=== PATIENT | male | born 1940 | race Caucasian/White ===

== ENCOUNTER 2018-10-01 05:48 | Emergency (ER) | payer OTHER ==
[2018-10-01 06:22] LABS: Absolute Lymphocytes (CBC) 2.1 K/uL (0.7-4.9); Basophils % 0.4 % (0-1.3); Lymphocytes % 30.3 % (15.3-44.8); MPV 8.8 fL (7.6-11.3)
[2018-10-01 06:25] LABS: Protime INR 1.02
[2018-10-01] MEDS ORDERED: NA CHLORIDE 0.9% 1,000 ML ONE (06:33)
[2018-10-01 06:41] LABS: ALT/SGPT 21 U/L (12-78); AST/SGOT 15 U/L (15-37); Albumin 4.4 g/dL (3.4-5.0); Alkaline Phosphatase 49 U/L (45-117); BUN Blood Urea Nitrogen 18 mg/dL (7-18); Bicarbonate 29 mmol/L (21-32); Bilirubin Direct 0.2 mg/dL (0-0.2); Bilirubin Total 0.8 mg/dL (0.2-1.0); Glucose Level 107 mg/dL (74-106); Lipase 114 U/L (73-393); Magnesium 2.1 mg/dL (1.8-2.4); NT PRO-BNP 85 pg/mL (<450); Potassium 4.1 mmol/L (3.5-5.1); Protein, Total 7.8 g/dL (6.4-8.2); Sodium Level 143 mmol/L (136-145); Troponin (Emerg Dept Use Only) < 0.02 ng/mL (0.0-0.045)
[2018-10-01] MEDS ORDERED: AMLODIPINE 5 MG TAB ONE (07:15)
--- NOTE | 2018-10-01 07:45 | RAD REPORT ---
EXAM DESCRIPTION: CT - Head Brain Wo Cont - 10/01/2018 7:04 am CLINICAL HISTORY: Dizziness, posterior headache COMPARISON: None. TECHNIQUE: Axial 5 mm thick images of the head were obtained without IV contrast. All CT scans are performed using dose optimization technique as appropriate and may include automated exposure control or mA/KV adjustment according to patient size. FINDINGS: No intracranial hemorrhage, mass, edema or shift of mid-line structures. No acute infarcti on changes seen. No abnormal extra-axial fluid collections. Ventricles are normal. Atrophy changes ar e minimal. No measurable chronic ischemic change. Arterial tree calcifications are present. Basilar a rtery is quite tortuous. Calcifications of the vertebral arteries are very dense and may well be sten otic. Partially visualized paranasal sinuses are clear. Right mastoid air cells are clear. Left mastoid air cells are underpneumatized. The existing mastoid air cells are fully opacified. Middle ear is clear. No acute bony findings. IMPRESSION: No acute intracranial finding. No significant atrophy or chronic ischemic change. Arterial tree calcifications are present including dense calcifications of the distal vertebral arter ies'. Opacification of the left side mastoid air cells. Mastoiditis is possible and correlation is needed w ith clinical findings and presentation.
[2018-10-01] MEDS ORDERED: ASPIRIN 81 MG CHEWABLE TABLET ONE (07:59)
[2018-10-01] MEDS ORDERED: MECLIZINE HCL 12.5 MG TAB ONE (08:11)
[2018-10-01 08:23] LABS: Urine Blood NEGATIVE (NEG); Urine Glucose NEGATIVE (NEG); Urine Protein NEGATIVE (NEG)
--- NOTE | 2018-10-01 08:36 | RAD REPORT ---
EXAM DESCRIPTION: RAD - Chest Single View - 10/01/2018 6:20 am CLINICAL HISTORY: Dizziness, cough, hypertension COMPARISON: None. TECHNIQUE: AP portable chest image was obtained 0615 hours . FINDINGS: Interstitial markings are mildly prominent believed to be baseline. No focal mass or conso lidation. Heart size is normal. Pulmonary vasculature within normal limits. Heart size is normal. Tra tay is midline. No measurable pleural effusion and no pneumothorax. No acute bony abnormality seen. Aortic tortuosity is present without aneurysmal dilatation suspected. IMPRESSION: No acute cardiopulmonary process. Patient has prominent interstitial markings believed be baseline.
--- NOTE | 2018-10-01 08:47 | EKG ---
Test Date: 2018-10-01 Test Time: 06:13:06 [employer] Consultant: MITCHELL MEASUREMENT RESULTS: Intervals: Rate: 74 TN: 156 QRSD: 90 QT: 404 QTc: 448 [place]: P: 65 TN: 156 QRS: 50 T: 59 INTERPRETIVE STATEMENTS: Normal sinus rhythm Normal ECG No previous ECG available for comparison Electronically Signed On 10-01-18 08:46:26 CDT by Blayne Pulido
--- NOTE | 2018-10-01 11:40 | RAD REPORT ---
EXAM DESCRIPTION: - CP - 10/01/2018 10:17 am CLINICAL HISTORY: Dizziness, syncope COMPARISON: None. TECHNIQUE: Real-time sonographic evaluation of both carotid systems was performed. Kenny scale and Do ppler interrogation were performed with waveform tracing bilaterally. FINDINGS: Normal high resistance waveforms are noted in both external carotid arteries. The common c arotid arteries and internal carotid arteries show normal low resistance waveforms. Short segment focal calcified plaquing changes are present in the distal aspect of the right common c arotid artery. Velocity values proximal and distal to this focal plaquing are not substantially diffe rent. More distally in the right side vasculature within the bulb and ICA there is no significant add itional plaquing change. On the left side there is no significant degree of plaquing or luminal narro wing. No dissection. Peak systolic and end diastolic velocity values and the ICA/CCA ratios are in th e non-hemodynamically significant range. Antegrade flow seen in both vertebral arteries. Velocity values and ratios were recorded and are retained in the patient's imaging records. IMPRESSION: No significant atherosclerotic changes noted. Focal calcified plaquing in the distal right common carotid artery is present but does not cause abno rmal velocity values. Velocity values and ratios indicate no hemodynamically significant stenoses.
--- NOTE | 2018-10-01 12:12 | EDPHYS ---
Physician Documentation [facility] Name: Capo Del Real Age: 77 yrs Sex: Male : 1940 Arrival Date: 10/01/2018 Time: 05:49 Bed 17 Private MD: ED Physician Soto Prieto HPI: 10/01 06:59 This 77 yrs old Male presents to ER via Wheelchair with complaints of stephen Dizziness, High Blood Pressure. 06:59 The patient presents with dizziness. Onset: The symptoms/episode began/occurred just stephen prior to arrival, this morning, today. Context: occurred at home, occurred while the patient was at rest. Modifying factors: The symptoms are alleviated by nothing, the symptoms are aggravated by nothing. Associated signs and symptoms: The patient has no apparent associated signs or symptoms. Severity of symptoms: At their worst the symptoms were mild in the emergency department the symptoms are unchanged. Patient's baseline: Neuro: alert and fully oriented. The patient has not experienced similar symptoms in the past. Historical: - Allergies: 06:00 Cipro; cc3 - PMHx: 06:00 None; cc3 - PSHx: 06:00 back surgery; cc3 - Immunization history:: Adult Immunizations up to date. - Social history:: Smoking status: Patient/guardian denies using tobacco, never smoked. - Ebola Screening: : No symptoms or risks identified at this time. - Family history:: not pertinent. ROS: 06:59 Constitutional: Negative for fever, chills, and weight loss, Eyes: Negative for injury, stephen pain, redness, and discharge, ENT: Negative for injury, pain, and discharge, Neck: Negative for injury, pain, and swelling, Cardiovascular: Negative for chest pain, palpitations, and edema, Respiratory: Negative for shortness of breath, cough, wheezing, and pleuritic chest pain, Abdomen/GI: Negative for abdominal pain, nausea, vomiting, diarrhea, and constipation, Back: Negative for injury and pain, : Negative for injury, bleeding, discharge, and swelling, MS/Extremity: Negative for injury and deformity, Skin: Negative for injury, rash, and discoloration, Psych: Negative for depression, anxiety, suicide ideation, homicidal ideation, and hallucinations, Allergy/Immunology: Negative for hives, rash, and allergies, Endocrine: Negative for neck swelling, polydipsia, polyuria, polyphagia, and marked weight changes, Hematologic/Lymphatic: Negative for swollen nodes, abnormal bleeding, and unusual bruising. 06:59 Neuro: Positive for dizziness. Exam: 06:59 Constitutional: This is a well developed, well nourished patient who is awake, alert, stephen and in no acute distress. Head/Face: Normocephalic, atraumatic. Eyes: Pupils equal round and reactive to light, extra-ocular motions intact. Lids and lashes normal. Conjunctiva and sclera are non-icteric and not injected. Cornea within normal limits. Periorbital areas with no swelling, redness, or edema. ENT: Nares patent. No nasal discharge, no septal abnormalities noted. Tympanic membranes are normal and external auditory canals are clear. Oropharynx with no redness, swelling, or masses, exudates, or evidence of obstruction, uvula midline. Mucous membranes moist. Neck: Trachea midline, no thyromegaly or masses palpated, and no cervical lymphadenopathy. Supple, full range of motion without nuchal rigidity, or vertebral point tenderness. No Meningismus. Chest/axilla: Normal chest wall appearance and motion. Nontender with no deformity. No lesions are appreciated. Cardiovascular: Regular rate and rhythm with a normal S1 and S2. No gallops, murmurs, or rubs. Normal PMI, no JVD. No pulse deficits. Respiratory: Lungs have equal breath sounds bilaterally, clear to auscultation and percussion. No rales, rhonchi or wheezes noted. No increased work of breathing, no retractions or nasal flaring. Abdomen/GI: Soft, non-tender, with normal bowel sounds. No distension or tympany. No guarding or rebound. No evidence of tenderness throughout. Back: No spinal tenderness. No costovertebral tenderness. Full range of motion. Skin: Warm, dry with normal turgor. Normal color with no rashes, no lesions, and no evidence of cellulitis. MS/ Extremity: Pulses equal, no cyanosis. Neurovascular intact. Full, normal range of motion. Neuro: Awake and alert, GCS 15, oriented to person, place, time, and situation. Cranial nerves II-XII grossly intact. Motor strength 5/5 in all extremities. Sensory grossly intact. Cerebellar exam normal. Normal gait. Psych: Awake, alert, with orientation to person, place and time. Behavior, mood, and affect are within normal limits. 06:59 Cardiovascular: Rate: normal, Rhythm: regular, Pulses: no pulse deficits are appreciated, Heart sounds: normal, normal S1and S2, no S3 or S4, no murmur, no rub, no gallop, Edema: is not appreciated, JVD: is not appreciated. Vital Signs: 06:00 BP 187 / 96; Pulse 85; Resp 18 S; Temp 97.7(O); Pulse Ox 98% on R/A; Weight 83.91 kg cc3 (R); Height 5 ft. 9 in. (175.26 cm) (R); 06:47 BP 162 / 88; Pulse 70; Resp 17 S; Pulse Ox 98% on R/A; cc3 07:07 BP 154 / 92; Pulse 70; Resp 16 S; Pulse Ox 99% on R/A; aa5 08:00 BP 157 / 75; Pulse 72; Resp 16; Temp 98.0(TE); Pulse Ox 98% on R/A; Pain 0/10; aa5 09:00 BP 145 / 75; Pulse 62; Resp 16 S; Pulse Ox 98% on R/A; Pain 0/10; aa5 10:35 BP 144 / 71; Pulse 59; Resp 18; Pulse Ox 98% on R/A; aj1 11:47 BP 146 / 74; Pulse 56; Resp 15; Pulse Ox 99% on R/A; aj1 12:43 BP 136 / 68; Pulse 55; Resp 18; Pulse Ox 99% on R/A; aj1 06:00 Body Mass Index 27.32 (83.91 kg, 175.26 cm) 3 MDM: 06:01 Patient medically screened. [facility] 07:09 Data reviewed: vital signs, nurses notes, lab test result(s), EKG, radiologic studies, [facility] CT scan, doppler, plain films. 10:29 Data interpreted: Pulse oximetry: on room air is 98 %. Interpretation: normal. jr8 Counseling: I had a detailed discussion with the patient and/or guardian regarding: the historical points, exam findings, and any diagnostic results supporting the discharge/admit diagnosis, lab results, radiology results, the need for outpatient follow up, a family practitioner, to return to the emergency department if symptoms worsen or persist or if there are any questions or concerns that arise at home. 10/01 05:58 Order name: Basic Metabolic Panel [facility] 10/01 05:58 Order name: CBC with Diff; Complete Time: 06:46 stephen 10/01 05:58 Order name: LFT's; Complete Time: 06:46 stephen 10/01 05:58 Order name: Magnesium; Complete Time: 06:46 stephen 10/01 05:58 Order name: NT PRO-BNP; Complete Time: 06:46 stephen 10/01 05:58 Order name: PT-INR; Complete Time: 06:46 stephen 10/01 05:58 Order name: Troponin (emerg Dept Use Only); Complete Time: 06:46 stephen 10/01 05:58 Order name: XRAY Chest (1 view); Complete Time: 10:25 stephen 10/01 05:58 Order name: Lipase; Complete Time: 06:46 stephen 10/01 05:58 Order name: Urine Culture [facility] 10/01 05:58 Order name: CT Head Brain wo Cont; Complete Time: 07:55 stephen 10/01 05:59 Order name: Basic Metabolic Panel; Complete Time: 06:46 EDMS 10/01 07:10 Order name: Echo w/ Doppler [facility] 10/01 08:14 Order name: Urine Dipstick--Ancillary (enter results); Complete Time: 10:25 eb 10/01 05:58 Order name: EKG; Complete Time: 06:00 stephen 10/01 05:58 Order name: Cardiac monitoring; Complete Time: 06:05 stephen 10/01 05:58 Order name: EKG - Nurse/Tech; Complete Time: 06:25 stephen 10/01 05:58 Order name: IV Saline Lock; Complete Time: 06:24 stephen 10/01 05:58 Order name: Labs collected and sent; Complete Time: 06:24 stephen 10/01 05:58 Order name: O2 Per Protocol; Complete Time: 06:06 stephen 10/01 05:58 Order name: O2 Sat Monitoring; Complete Time: 06:06 stephen 10/01 05:58 Order name: Urine Dipstick-Ancillary (obtain specimen); Complete Time: 08:38 stephen 10/01 07:54 Order name: US Carotid Artery Bilateral; Complete Time: 11:45 stephen Administered Medications: 06:26 Drug: NS 0.9% 1000 ml Route: IV; Rate: 125 ml/hr; Site: right antecubital; cc3 12:44 Follow up: IV Status: Completed infusion; IV Intake: 500ml aj1 06:50 Drug: Norvasc 10 mg Route: PO; cc3 07:30 Follow up: Response: No adverse reaction aa5 07:22 Not Given (Duplicate Order): benazepril 20 mg PO once stephen 07:40 Drug: Aspirin 162 mg Route: PO; aa5 09:00 Follow up: Response: No adverse reaction aa5 07:54 Drug: Meclizine 25 mg Route: PO; aa5 09:00 Follow up: Response: No adverse reaction aa5 Disposition: 10/01/18 12:11 Discharged to Home. Impression: Essential (primary) hypertension, Dizziness and giddiness. - Condition is Stable. - Discharge Instructions: Dizziness, Hypertension, Hypertension, [id number], Aspirin and Your Heart, Dizziness, [id number], Managing Your Hypertension. - Prescriptions for Lotrel 5- 10 mg Oral capsule - take 1 capsule by ORAL route once daily; 20 capsule. Meclizine 25 mg Oral Tablet - take 1 tablet by ORAL route every 8 hours As needed; 30 tablet. - Medication Reconciliation Form, Thank You Letter, Antibiotic Education, Prescription Opioid Use, SBAR form form. - Follow up: Private Physician; When: 2 - 3 days; Reason: Recheck today's complaints, Continuance of care, Re-evaluation by your physician. Follow up: A Meraz; When: 2 - 3 days; Reason: Recheck today's complaints, Continuance of care, Re-evaluation by your physician. - Problem is new. - Symptoms have improved. Signatures: Dispatcher [employer] EDAntonia Marks RN RN aj1 Soto Prieto MD MD cha Calderon, Audri RN RN aa5 David Sampson PA PA jr8 Diane Barrera cc3 Corrections: (The following items were deleted from the chart) 12:45 12:11 10/01/2018 12:11 Discharged to Home. Impression: Essential (primary) aj1 hypertension; Dizziness and giddiness. Condition is Stable. Discharge Instructions: Dizziness, Hypertension, Hypertension, [id number], Aspirin and Your Heart, Dizziness, [id number], Managing Your Hypertension. Prescriptions for Lotrel 5-10 mg Oral capsule - take 1 capsule by ORAL route once daily; 20 capsule, Meclizine 25 mg Oral Tablet - take 1 tablet by ORAL route every 8 hours As needed; 30 tablet. and Forms are SBAR form, Medication Reconciliation Form, Thank You Letter, Antibiotic Education, Prescription Opioid Use. Follow up: Private Physician; When: 2 - 3 days; Reason: Recheck today's complaints, Continuance of care, Re-evaluation by your physician. Follow up: A Meraz; When: 2 - 3 days; Reason: Recheck today's complaints, Continuance of care, Re-evaluation by your physician. Problem is new. Symptoms have improved. jr8
--- NOTE | 2018-10-01 12:12 | ER ---
Nurse's Notes [facility] Name: Capo Del Real Age: 77 yrs Sex: Male : 1940 Arrival Date: 10/01/2018 Time: 05:49 Bed 17 Private MD: Diagnosis: Essential (primary) hypertension;Dizziness and giddiness Presentation: 10/01 06:00 Presenting complaint: Patient states: "At 0400H this morning while I was trying to fall cc3 asleep, I feel like everything is spinning and I'm having a headache with NRS of 2/10. We checked my blood pressure at home and the reading is 156/102 mmHg" Patient said he's had chest pain a couple of days back but now he don't. Transition of care: patient was not received from another setting of care. Onset of symptoms was October 01, 2018. Risk Assessment: Do you want to hurt yourself or someone else? Patient reports no desire to harm self or others. Initial Sepsis Screen: Does the patient meet any 2 criteria? No. Patient's initial sepsis screen is negative. Does the patient have a suspected source of infection? No. Patient's initial sepsis screen is negative. Care prior to arrival: None. 06:00 Method Of Arrival: Wheelchair cc3 06:00 Acuity: WAYNE 3 cc3 Triage Assessment: 06:00 General: Appears in no apparent distress. comfortable, Behavior is calm, cooperative, cc3 appropriate for age. Pain: Complains of pain in head Pain currently is 2 out of 10 on a pain scale. EENT: No signs and/or symptoms were reported regarding the EENT system. Neuro: Level of Consciousness is awake, alert, obeys commands, Oriented to person, place, time, situation, Appropriate for age. Cardiovascular: Denies chest pain, Capillary refill < 3 seconds Patient's skin is warm and dry. Respiratory: Airway is patent Respiratory effort is even, unlabored, Respiratory pattern is regular, symmetrical. GI: Abdomen is round non-distended. : No signs and/or symptoms were reported regarding the genitourinary system. Derm: Skin is intact, is healthy with good turgor, Skin is pink, warm \\T\\ dry. normal. Musculoskeletal: Circulation, motion, and sensation intact. Range of motion: intact in all extremities. Historical: - Allergies: 06:00 Cipro; cc3 - PMHx: 06:00 None; cc3 - PSHx: 06:00 back surgery; cc3 - Immunization history:: Adult Immunizations up to date. - Social history:: Smoking status: Patient/guardian denies using tobacco, never smoked. - Ebola Screening: : No symptoms or risks identified at this time. - Family history:: not pertinent. Screenin:00 Abuse screen: Denies threats or abuse. Denies injuries from another. Nutritional cc3 screening: No deficits noted. Tuberculosis screening: No symptoms or risk factors identified. Fall Risk Ambulatory Aid- None/Bed Rest/Nurse Assist (0 pts). Gait- Normal/Bed Rest/Wheelchair (0 pts) Mental Status- Oriented to own ability (0 pts). Assessment: 06:00 General: see triage assessment. cc3 07:35 General: Appears uncomfortable, Behavior is calm, cooperative. Pain: Denies pain. aa5 Neuro: Level of Consciousness is awake, alert, obeys commands, Oriented to person, place, time, situation, Core Oven Tender are equal bilaterally Moves all extremities. Speech is normal, Facial symmetry appears normal, Pupils are PERRLA, Reports dizziness, worse with movement. Cardiovascular: Heart tones S1 S2 present Rhythm is regular. Respiratory: Airway is patent Respiratory effort is even, unlabored, Respiratory pattern is regular, symmetrical, Breath sounds are clear bilaterally. GI: Abdomen is round non-distended, Bowel sounds present X 4 quads. Abd is soft and non tender X 4 quads. Patient currently denies nausea, vomiting. : No signs and/or symptoms were reported regarding the genitourinary system. EENT: No signs and/or symptoms were reported regarding the EENT system. Derm: Skin is pink, warm \\T\\ dry. Musculoskeletal: Range of motion: intact in all extremities. 09:00 Reassessment: Patient is alert, oriented x 3, equal unlabored respirations, skin aa5 warm/dry/pink. Patient denies pain at this time. Pt reports dizziness has improved. Awaiting US. US contacted and they stated they will come to transport pt to US in a few minutes. . 09:18 Reassessment: Pt to US via stretcher . aa5 10:33 Reassessment: Patient and/or family updated on plan of care and expected duration. Pain aj1 level reassessed. General: Appears in no apparent distress. comfortable, Behavior is calm, cooperative, appropriate for age. Pain: Denies pain. Neuro: Level of Consciousness is awake, alert, obeys commands, Oriented to person, place, time, situation, Moves all extremities. Full function Speech is normal, Facial symmetry appears normal, Reports dizziness. Cardiovascular: Patient's skin is warm and dry. Respiratory: Airway is patent Respiratory effort is even, unlabored, Respiratory pattern is regular, symmetrical. Derm: Skin is pink, warm \\T\\ dry. normal. Musculoskeletal: Range of motion: intact in all extremities. 11:04 Reassessment: Echo at bedside. aj1 11:46 Reassessment: Patient appears in no apparent distress at this time. No changes from aj1 previously documented assessment. Patient and/or family updated on plan of care and expected duration. Pain level reassessed. Patient is alert, oriented x 3, equal unlabored respirations, skin warm/dry/pink. 12:43 Reassessment: Patient appears in no apparent distress at this time. No changes from aj1 previously documented assessment. Patient and/or family updated on plan of care and expected duration. Pain level reassessed. Patient is alert, oriented x 3, equal unlabored respirations, skin warm/dry/pink. Vital Signs: 06:00 BP 187 / 96; Pulse 85; Resp 18 S; Temp 97.7(O); Pulse Ox 98% on R/A; Weight 83.91 kg cc3 (R); Height 5 ft. 9 in. (175.26 cm) (R); 06:47 BP 162 / 88; Pulse 70; Resp 17 S; Pulse Ox 98% on R/A; cc3 07:07 BP 154 / 92; Pulse 70; Resp 16 S; Pulse Ox 99% on R/A; aa5 08:00 BP 157 / 75; Pulse 72; Resp 16; Temp 98.0(TE); Pulse Ox 98% on R/A; Pain 0/10; aa5 09:00 BP 145 / 75; Pulse 62; Resp 16 S; Pulse Ox 98% on R/A; Pain 0/10; aa5 10:35 BP 144 / 71; Pulse 59; Resp 18; Pulse Ox 98% on R/A; aj1 11:47 BP 146 / 74; Pulse 56; Resp 15; Pulse Ox 99% on R/A; aj1 12:43 BP 136 / 68; Pulse 55; Resp 18; Pulse Ox 99% on R/A; aj1 06:00 Body Mass Index 27.32 (83.91 kg, 175.26 cm) cc3 ED Course: 05:49 Patient arrived in ED. ds1 05:56 Diane Barrera is Primary Nurse. cc3 05:57 Soto Prieto MD is Attending Physician. stephen 06:00 Patient has correct armband on for positive identification. Placed in gown. Bed in low cc3 position. Call light in reach. Side rails up X 1. filler shaker on. Pulse ox on. NIBP on. 06:00 Arm band placed on right wrist. cc3 06:05 Initial lab(s) drawn, by me, sent to lab. Inserted saline lock: 20 gauge in right jb4 antecubital area, using aseptic technique. Blood collected. 06:20 XRAY Chest (1 view) In Process Unspecified. EDMS 06:32 Triage completed. cc3 06:59 CT completed. Patient tolerated procedure well. Patient moved to CT via stretcher. Patient moved back from CT. 07:00 Report received from ROSANNE Contreras. aa5 07:05 CT Head Brain wo Cont In Process Unspecified. EDMS 07:40 Ny Davies, RN is Primary Nurse. aa5 09:56 Report given to Antonia Mayen RN. aa5 10:11 Carotid Artery Bilateral In Process Unspecified. EDMS 10:25 David Sampson PA is PHCP. jr8 12:11 Jeffrey Meraz MD is Referral Physician. jr8 12:43 No provider procedures requiring assistance completed. IV discontinued, intact, aj1 bleeding controlled, No redness/swelling at site. Pressure dressing applied. Administered Medications: 06:26 Drug: NS 0.9% 1000 ml Route: IV; Rate: 125 ml/hr; Site: right antecubital; cc3 12:44 Follow up: IV Status: Completed infusion; IV Intake: 500ml aj1 06:50 Drug: Norvasc 10 mg Route: PO; cc3 07:30 Follow up: Response: No adverse reaction aa5 07:22 Not Given (Duplicate Order): benazepril 20 mg PO once stephen 07:40 Drug: Aspirin 162 mg Route: PO; aa5 09:00 Follow up: Response: No adverse reaction aa5 07:54 Drug: Meclizine 25 mg Route: PO; aa5 09:00 Follow up: Response: No adverse reaction aa5 Intake: 12:44 IV: 500ml; Total: 500ml. aj1 Outcome: 12:11 Discharge ordered by . jr8 12:44 Discharged to home ambulatory, with family. aj1 12:44 Condition: good 12:44 Discharge instructions given to patient, Instructed on discharge instructions, follow up and referral plans. medication usage, Demonstrated understanding of instructions, follow-up care, medications, Prescriptions given X 2. 12:45 Patient left the ED. aj1 Signatures: Dispatcher [employer] EDAntonia Marks RN RN aj1 Soto Prieto MD MD cha Hagler, Mari Nair ds1 Ny Davies RN RN aa5 David Sampson PA PA jr8 Pablo Moran RN RN jb4 Diane Barrera cc3 Corrections: (The following items were deleted from the chart) 09:57 09:56 Report given to Antonia Mayen RN aj1 aa5 58 07:30 Response: No adverse reaction [facility] aa5 09:00 Response: No adverse reaction [facility] aa5 58 09:00 Response: No adverse reaction [facility] aa5
--- NOTE | 2018-10-01 13:41 | ECHO ---
HEIGHT: 5 ft 9 in WEIGHT: 185 lb 0 oz DATE OF STUDY: 10/01/[address]: Soto Prieto MD 2-DIMENSIONAL: YES M.MODE: YES DOPPLER: YES COLOR FLOW: YES TDS: NO PORTABLE: NO DEFINITY: NO BUBBLE STUDY: NO DIAGNOSIS: DIZZY CARDIAC HISTORY: CATHERIZATION: NO SURGERY: NO PROSTHETIC VALVE: NO PACEMAKER: NO MEASUREMENTS (cm) DIASTOLIC (NORMALS) SYSTOLIC (NORMALS) IVSd 1.0 (0.6-1.2) LA Diam 4.2 (1.9-4.0) LVEF 60% LVIDd 4.5 (3.5-5.7) LVIDs 3.1 (2.0-3.5) %FS 32% LVPWd 1.1 (0.6-1.2) Ao Diam 3.2 (2.0-3.7) 2 DIMENSIONAL ASSESSMENT: RIGHT ATRIUM: NORMAL LEFT ATRIUM: NORMAL RIGHT VENTRICLE: NORMAL LEFT VENTRICLE: NORMAL TRICUSPID VALVE: NORMAL MITRAL VALVE: NORMAL PULMONIC VALVE: NORMAL AORTIC VALVE: NORMAL PERICARDIAL EFFUSION: NONE AORTIC ROOT: NORMAL LEFT VENTRICULAR WALL MOTION: NORMAL. DOPPLER/COLOR FLOW: NORMAL. COMMENTS: NORMAL 2D ECHOCARDIOGRAM. NO WALL MOTION ABNORMALITIES. NO EFFUSION. TECHNOLOGIST: ROMANA WILLETT
== END 2018-10-01 12:45 | disposition home or self-care (01) ==
LOC: ER 05:48
DX: I10 Essential (primary) hypertension (principal); R42 Dizziness and giddiness
CPT/HCPCS: 96361; 93005; 93306; 87088; 85025; 87086; 80048; 36415; 83735; 85610; 80076; 81003; 84484; 83690; 83880; 70450; 71045; 93880; 96360; 99285; J7030

== ENCOUNTER 2019-08-25 23:17 | Emergency (ER) | payer OTHER ==
--- OUTSIDE RECORDS SUMMARY | 2019-08-25 23:20 | XMS REPORT | Clinical Summary ---
:1940 Author Organization [facility] Address [address] [place] [address] Care Team Providers Name Role Phone Prasanth Del Real MD Primary Care Provider Allergies Active Allergy Reactions Severity Noted Date Comments Ciprofloxacin 09/09/2016 Painful / swol lucretia ankles Medications Medication Sig Dispensed Refills Start Date End Date Status alfuzosin Take 10 mg by 0 Active (UROXATRAL) 10 mg mouth nightly. 24 hr tablet sildenafil, for MAY TAKE UP TO 30 tablet 0 10/16/2018 Active pulmonary 5 TABLET BY hypertersion, MOUTH AT ONE (REVATIO) 20 mg TIME tablet famotidine Take 10 mg by 0 Activ e (PEPCID) 10 MG mouth every tablet evening. cilostazoL Take 1 tablet 60 tablet 0 07/29/2019 08/28/19 Acti ve (PLETAL) 100 MG (100 mg total) 20 tablet by mouth 2 (two) times a day for 30 days. sulfamethoxazole-t Take 1 tablet 10 tablet 0 08/23/2019 Active rimethoprim by mouth 2 20 (Bactrim DS) (two) times a 800-160 mg per day for 5 tablet days. omeprazole OTC Take by mouth. 0 05/21/19 Discontinued (PriLOSEC OTC) 20 20 (P atient MG EC tablet Reporte d) sildenafil, MAY TAKE UP TO 30 tablet 0 03/08/2018 10/16/19 Di scontinued antihypertensive, 5 TABLETS BY 19 (Reorder) (REVATIO) 20 mg MOUTH AT ONE tablet TIME diclofenac Apply 100 g 1 10/26/2018 10/28/19 Disconti nued (VOLTAREN) 1 % gel topically 2 19 (two) times a day. diclofenac Apply 2 grams 100 g 1 10/27/2018 05/21/19 Disc ontinued (VOLTAREN) 1 % to affected 20 (Kulwant worthington gelIndications: area BID. Repo rted) Acute pain of right knee famotidine Take 20 mg by 0 08/03/19 Disco ntinued (PEPCID) 20 MG mouth every 20 (Me d List tablet morning. Cleanup) sulfamethoxazole-t Take 1 tablet 6 tablet 0 05/26/2019 rimethoprim by mouth 2 20 (BACTRIM DS) (two) times a 800-160 mg per day for 6 tablet doses. metroNIDAZOLE Take 1 tablet 9 tablet 0 05/26/2019 05/29/19 E xpired (Flagyl) 500 MG (500 mg total) 20 tablet by mouth 3 (three) times a day for 9 doses. cilostazoL Take 1 tablet 180 tablet 0 06/01/2019 07/29/19 Dis continued (PLETAL) 100 MG (100 mg total) 20 (Reorder) tablet by mouth 2 (two) times a day for 90 days. sulfamethoxazole-t Take 1 tablet 6 tablet 0 08/05/2019 rimethoprim by mouth 2 20 (BACTRIM DS) (two) times a 800-160 mg per day for 6 tablet doses. metroNIDAZOLE Take 1 tablet 9 tablet 0 08/05/2019 08/08/19 E xpired (FlagyL) 500 MG (500 mg total) 20 tablet by mouth 3 (three) times a day for 9 doses. Hospital, Clinic, or Other Ordered Dose Route Frequency Start Date End Date Status Facility Administered Medication gentamicin (GARAMYCIN) 80 mg IM once 08/20/20192019 Ended injection 80 mgIndications: Malignant neoplasm of prostate (HCC) Active Problems Problem Noted Date Derangement of posterior horn of medial meniscus of ri ght knee 06/15/2019 Primary osteoarthritis of right knee 06/15/2019 Lymphoma 06/01/2019 Impotence of organic origin 05/13/2017 Elevated PSA 12/31/2016 Malignant neoplasm of prostate 12/31/2016 Hemorrhoids GERD (gastroesophageal reflux disease) Overview: has difficulty swallowing Diverticulosis Colon polyp Hematochezia Esophageal stricture Encounters Date Type Specialty Care Team Description 08/24/2019 Orders Only Urology Cody Pierre MD 08/23/2019 Telephone Urology Cody Pierre MD 08/20/2019 Ancillary Procedure Urology Cody Pierre Elevate d PSA MD Pedro 08/20/2019 Procedure visit Urology Cody Pierre Malignant n eoplasm hellen Vasquez MD prostate ([facility]) (Primary Dx) 08/20/2019 Travel 08/05/2019 Office Visit Urology Cody Pierre Elevated PSA ( Primary F., MD Dx) 08/05/2019 Orders Only Urology Cody Pierre MD 08/05/2019 Travel 08/03/2019 Office Visit Family Medicine Joshua, Peripheral a rterial occlusive disease ([facility]) (Primary Dx); Carlee Impaired fastin g glucose; MD Samir Atherosclerosis of [place] arteries of extremities with intermittent claudication, left leg ([facility]) 08/03/2019 Travel 07/29/2019 Travel 07/29/2019 Telephone Cardiovascular Chandrakant Hurley MD 07/27/2019 Telephone Cardiovascular Juancarlos Pollard MA 06/23/2019 Telephone Urology Cody Pierre Malignant neop lasm hellen Vasquez MD prostate ([facility]) 06/15/2019 Office Visit Orthopedic Surgery Nathaniel Quilesangeme nt of posterior horn of medial meniscus of right knee (Primary Dx); Rory SEPULVEDA MD Primary osteo arthritis of right knee 06/15/2019 Travel 06/14/2019 Telemedicine Orthopedic Surgery Nathaniel Quiles Chronic p ain of right knee (Primary Dx); Rory SEPULVEDA MD Primary osteo arthritis of right knee; Derangement of posterior horn of medial meniscus of right knee 06/09/2019 Telephone Cardiovascular Diann Rose, ROSANNE 06/08/2019 Travel 06/02/2019 Travel 06/01/2019 Telemedicine Cardiovascular Chandrakant Hurley PAD (peripher jamar Neff MD artery disease) ([facility]) (Primary Dx) 05/27/2019 Travel 05/25/2019 Hospital Encounter Radiology Nathaniel Quiles Acute angelia n of right Rory SEPULVEDA MD knee 05/25/2019 Hospital Encounter Radiology Chandrakant Hurley Claudicat ion of left MD T[place]anda lower extremity ([facility]) 05/25/2019 Hospital Encounter Radiology Cody Pierrean t neoplasm of MD Pedro prostate ([facility]) 05/25/2019 Travel 05/24/2019 Travel 05/21/2019 Travel 05/21/2019 Telephone Cardiovascular Milton, PAD (peripher jamar Tidwell RN artery disease) (HCC) (Primary Dx) 05/17/2019 Travel 05/13/2019 Travel 05/12/2019 Orders Only Urology Katrina Vale, Malignant neop lasm of [place] prostate (HCC) (Primary Dx) 05/12/2019 Telephone Urology Katrina Vale, PIPPA 05/11/2019 Telephone Cardiovascular Juancarlos Pollard MA 05/10/2019 Office Visit Urology Cody Pierre Malignant neop lasm of MD Pedro prostate (HCC) (Primary Dx) 05/10/2019 Travel 04/21/2019 Telephone Cardiovascular Chandrakant Hurley Claudication of left MD [place]anda lower extremity (HCC) (Primary Dx) 04/20/2019 Telephone Urology Cody Pierre MD 02/01/2019 Telephone Urology Alivia Brody MA 01/26/2019 Office Visit Urology Cody Pierre Malignant neop lasm of prostate (HCC) (Primary Dx); MD Pedro Detrusor instab ility of bladder 01/26/2019 Orders Only Urology Cody Pierre MD 10/27/2018 Telephone Orthopedic Surgery Blair Acute angelia n of right ROSANNE Hutson knee (Primary D x) 10/26/2018 Office Visit Orthopedic Surgery Nathaniel Quiles Acute angelia n of right Rory SEPULVEDA MD knee (Primary Dx) 10/15/2018 Refill Urology Cody Pierre MD 10/12/2018 Telephone Urology Chayo Bro MA after 08/24/2018 Family History Medical History Relation Name Comments Prostate cancer Father with mets Cataracts Mother Glaucoma Mother Leukemia Mother CLL Relation Name Status Comments Father (Age 57) Mother (Age 93) Social History Tobacco Use Types Packs/Day Years Used Date Never Smoker Smokeless Tobacco: Never Used Alcohol Use Drinks/Week oz/Week Comments No Sex Assigned at Date Recorded Male 06/01/2019 10:37 AM CDT Job Start Date Occupation Industry Not on file Not on file Not on file Travel History Travel Start Travel End No recent travel history available. COVID-19 Exposure Response Date Recorded In the last month, have you been in contact with No / Unsure 08/20/2019 9:48 AM CDT someone who was confirmed or suspected to have Coronavirus / COVID-19? Last Filed Vital Signs Vital Sign Reading Time Taken Comments Blood Pressure 143/76 08/20/2019 10:11 AM CDT Pulse 84 08/20/2019 10:11 AM CDT Temperature 37 C (98.6 F) 08/03/2019 2:14 PM CDT Respiratory Rate 14 05/25/2019 12:32 PM CDT Oxygen Saturation 96% 08/03/2019 2:14 PM CDT Inhaled Oxygen Concentration - - Weight 79.4 kg (175 lb) 08/20/2019 10:11 AM CDT Height 175.3 cm (5' 9") 08/20/2019 10:11 AM CDT Body Mass Index 25.84 08/20/2019 10:11 AM CDT Plan of Treatment Date Type Specialty Care Team Description 09/06/2019 Office Visit Cardiovascular Chandrakant Hurley MD [address] [facility] [address] [place], [place] [address] [phone] 02/14/2020 Office Visit Family Medicine [place]Juan[place]ose molina MD [address] [facility] [address] [place], [place] [address] Health Maintenance Due Date Last Done Comments SHINGLES VACCINES (#1) 11/24/1989 65+ PNEUMOCOCCAL VACCINE (1 of 2 - PCV13) 11/24/2004 INFLUENZA VACCINE 10/02/2019 Implants Implanted Type Area Fitness Coach Device Shelf Model / Identifier Expiration Serial / Date Lot Matrix H[employer] Floseal 10ml W/ Humn F2 - [id number] Surgical N/A: N/A BILLY 01/24/2018 [id number] / Implanted: 09/23/2016 at [facility] (Quantity not on file) Imp lants; BIOSCIENCE / Expanders; [id number] Extenders; Surgical Wires Procedures Procedure Name Priority Date/Time Associated Diagnosis Comme nts BIOPSY PROSTATE Routine 08/24/2019 COPY(IES) SENT TO: Routine 08/05/2019 12:19 Resul ts for this PM CDT procedure are i n the results section. HEMOGLOBIN A1C Routine 08/05/2019 12:19 Results f or this PM CDT procedure are i n the results section. PROSTATE SPECIFIC Routine 08/05/2019 12:19 Result s for this ANTIGEN PM CDT procedure are i n the results section. COMPREHENSIVE Routine 08/05/2019 12:19 Results fo r this METABOLIC PANEL PM CDT procedure ar e in the results section. LIPID PANEL Routine 08/05/2019 12:19 Results for this PM CDT procedure are i n the results section. OK ARTHROCENTESIS Routine 06/15/2019 10:40 Derangement of Resu lts for this ASPIR&/INJ MAJOR AM CDT posterior horn of proced ure are in JT/BURSA W/O US medial meniscus of the re sults right knee section. Primary osteoarthritis of right knee MRI PROSTATE WWO Routine 05/25/2019 12:44 Malignant neoplasm o f Results for this CONTRAST PM CDT prostate (HCC) procedure are in the results section. MRI KNEE WO CONTRAST Routine 05/25/2019 11:30 Acute pain of ri ght Results for this RIGHT AM CDT knee procedure are i n the results section. PV PHYSIOLOGIC Routine 05/25/2019 10:10 Claudication of left R esults for this ARTERIAL LOWER AM CDT lower extremity (HCC) proc edure are in EXTREMITY COMPLETE the resul ts section. ESTIMATED GFR Routine 05/25/2019 9:34 Results fo r this AM CDT procedure are i n the results section. POC CREATININE Routine 05/25/2019 9:34 Results f or this AM CDT procedure are i n the results section. PROSTATE SPECIFIC Routine 05/10/2019 11:52 Malignant neoplasm of Results for this ANTIGEN AM CDT prostate (HCC) procedure are in the results section. POC URINALYSIS Routine 01/26/2019 4:41 Detrusor instability R esults for this DIPSTICK PM EMT BASIC of bladder procedure are i n the results section. [id number] Routine 01/26/2019 4:33 Detrusor instability Res ults for this PM EMT BASIC of bladder procedure are i n the results section. PROSTATE SPECIFIC Routine 01/26/2019 4:10 Result s for this ANTIGEN PM EMT BASIC procedure are i n the results section. XR KNEE 4+ VW RIGHT Routine 10/26/2018 3:25 Acute pain of rig ht Results for this PM CDT knee procedure are i n the results section. OK ARTHROCENTESIS Routine 10/26/2018 2:30 Acute pain of right Results for this ASPIR&/INJ MAJOR PM CDT knee procedure a re in JT/BURSA W/O US the results section. after 08/24/2018 Results Biopsy prostate (08/24/2019) Narrative Performed At This result has an attachment that is no t available. COPY(IES) SENT TO: (08/05/2019 12:19 PM CDT) Pathologist Sig nature Copies/mL [facility] Comment: [facility] [address] [phone] Specimen Narrative Performed At FASTING:YES [facility] FASTING: YES Performing Organization Address City/State/Zipcode Phone Number [facility] Prostate specific antigen (08/05/2019 12:19 PM CDT)Only the most recent of3 resultswithin the time period is included. PSA 9.2 (H) < OR = 4.0 [facility] Comment: ng/mL [place] The total PSA value from this assay system is standardized against the WHO standard. The test result will be approximately 20% lower when compared to the equimolar-standardized total PSA (Allie Houston). Comparison of serial PSA results should be interpreted with this fact in mind. This test was performed using the Siemens chemiluminescent method. Values obtained from different assay methods cannot be used interchangeably. PSA levels, regardless of value, should not be interpreted as absolute evidence of the presence or absence of disease. Specimen Narrative Performed At FASTING:YES rumr: turn off the lights FASTING: YES Resulting Agency Comment Performing Organization Information: Site ID: [id number] Name: [facility] Address: [address] [place] [phone] Director: Nathaniel Peterson Performing Organization Address City/[facility] [address]/[facility] Phone Number [facility] [address] [address] Hemoglobin A1c (08/05/2019 12:19 PM CDT) Hemoglobin A1C 5.3 <5.7 % of rumr: turn off the lights DIAGNOSTICS Comment: total Hgb [facility] For the purpose of screening for the presence of diabetes: <5.7% Consistent with the absence of diabetes 5.7-6.4% Consistent with increased risk for diabe carlyle (prediabetes) > or =6.5% Consistent with diabetes This assay result is consistent with a decreased risk of diabetes. Currently, no consensus exists regarding use of hemoglobin A1c for diagnosis of diabetes in children. According to [place] Diabetes Association (ADA) guidelines, hemoglobin A1c <7.0% represents optimal control in non- diabetic patients. Different metrics may apply to specific patient populations. Standards of Medical Care in Diabetes(ADA). Specimen Narrative Performed At FASTING:YES [facility] FASTING: YES Resulting Agency Comment Performing Organization Information: Site ID: [id number] Name: [facility] Address: [address] [place] [phone] Director: Nathaniel Peterson Performing Organization Address [facility] [address]/[facility] Centercode [place] [address] Lipid panel (08/05/2019 12:19 PM CDT) Cholesterol, total 123 <200 mg/dL [facility] HDL cholesterol 38 (L) > OR = 40 [facility] mg/dL [facility] Triglycerides 99 <150 mg/dL [facility] [place] LDL cholesterol 67 mg/dL (calc) rumr: turn off the lights DIAGNOSTICS calculated Comment: [facility] Reference range: <100 Desirable range <100 mg/dL for primary prevention; <70 mg/dL for patients with CHD or diabetic patients with > or = 2 CHD risk factors. LDL-C is now calculated using the Juvenal-Monique calculation, which is a validated novel method providi ng better accuracy than the Friedewald equation in the estimation of LDL-C. Juvenal SS et al. VIDHI. 2013;310(19): 6903-8584 (http://education.Xfluential.Whistle/faq/VYC757) Cholesterol/HDL 3.2 <5.0 (calc) rumr: turn off the lights DIAGNOSTICS [facility] Non-HDL cholesterol 85 <130 mg/dL rumr: turn off the lights DIAGNOSTICS Comment: (calc) [facility] For patients with diabetes plus 1 major ASCVD risk factor, treating to a non-HDL-C goal of <100 mg/dL (LDL-C of <70 mg/dL) is considered a therapeutic option. Specimen Narrative Performed At FASTING:YES [facility] FASTING: YES Resulting Agency Comment Performing Organization Information: Site ID: [id number] Name: [facility] Address: [address] [place] [phone] Director: Nathaniel Peterson Performing Organization Address [facility] [address]/[place]code [place] [address] Comprehensive metabolic panel (08/05/2019 12:19 PM CDT) Glucose 90 65 - 99 [facility] Comment: mg/dL [facility] Fasting reference interval BUN 19 7 - 25 mg/dL [facility] [place] Creatinine 1.23 (H) 0.70 - 1.18 [facility] Comment: mg/dL [facility] For patients >49 years of age, the reference limit for Creatinine is approximately 13% higher for people identified as -Nigerian. EGFR Non-Afr. 55 (L) > OR = 60 [facility] Nigerian mL/min/1.73m [facility] 2 EGFR 64 > OR = 60 [facility] Nigerian mL/min/1.73m [place] [address] BUN/creatinine 15 6 - 22 [facility] ratio (calc) [facility] Sodium 142 135 - 146 [facility] mmol/L [facility] Potassium 4.5 3.5 - 5.3 [facility] mmol/L [facility] Chloride 105 98 - 110 [facility] mmol/L [facility] CO2 27 20 - 32 [facility] mmol/L [facility] Calcium 9.7 8.6 - 10.3 [facility] mg/dL [facility] Protein 6.6 6.1 - 8.1 [facility] g/dL [facility] Albumin, S 4.4 3.6 - 5.1 [facility] g/dL [facility] Globulin, total 2.2 1.9 - 3.7 [facility] g/dL (calc) [facility] Albumin/globulin 2.0 1.0 - 2.5 [facility] ratio (calc) [facility] Total bilirubin 1.2 0.2 - 1.2 [facility] mg/dL [facility] Alkaline 44 35 - 144 U/L [facility] phosphatase [facility] AST 15 10 - 35 U/L [facility] ALT 13 9 - 46 U/L [facility] Specimen Narrative Performed At FASTING:YES [facility] FASTING: YES Resulting Agency Comment Performing Organization Information: Site ID: [id number] Name: [facility] Address: [address] [place] [phone] Director: Nathaniel Peterson Performing Organization Address City/State/Zipcode Phone Number [facility] [address] [address] Large Joint Arthrocentesis: knee, R knee (06/15/2019 10:40 AM CDT) Narrative Performed At [facility], Nathaniel Valadez II, MD 020 11:49 PM Large Joint Arthrocentesis: knee, R knee Consent given by: patient Site marked: site marked Timeout: Immediately prior to procedure a time out was called to verify the correct patient, procedure, equipmen t, technical support director and site/side marked as required Procedure Details Ultrasound guided: no Platelet Rich Plasma Used: no PRP Used Location: knee - R knee Right side: Needle size: 25 G Approach: anterolateral Right knee medications administered: 6 mg betamethason e acetate & sodium phosphate 6 mg/mL; 3 mL lidocaine 10 mg/ mL (1 %) Patient tolerance: patient tolerated the procedure wel l with no immediate complications MRI Prostate Wwo Contrast (05/25/2019 12:44 PM CDT) Specimen Narrative Performed At This result has an attachment that is no t available. EXAMINATION: MRI PROSTATE WWO CONTRAST [facility] CLINICAL HISTORY: C61 Malignant neopla sm of prostate, Prostate Cancer PSA Rising COMPARISON: 05/03/2014. TECHNIQUE: Using a pelvic phased array s urface coil, multiplanar, multisequence MRI of the pelvis was performed with a prostate-specific protocol with and without contrast.. Diffusion weighted images an d dynamic contrast enhanced images were performed. The image quality is satisfactory. IMPRESSION: 1.Size: The prostate gland measures 7.2 x 6.8 x 7.1 cm. Calculated prostatic volume (ellipsoid model) is 182 mL. 2.Central gland: Confluent T2 hypointens ity in the left central gland at the apex with reduced ADC value (series 950 image 22), is suspicious for primary tumor, PI-RADS 5, increased in size from prior, previously 1.4 cm. 3.Peripheral zone: There are patchy bila teral areas of linear and wedge-shaped mild T2 hypointensity in the peripheral zone compatible with a benign process such as prostatitis or atrophy (PI-RADS 2). T here is a small 6 mm curvilinear focus of diffusion restriction the left posterior periphera l zone at the mid gland (series 9 image 19), with T2 correlate (series 6 image 21), suspicious for primary tumor (PI- RADS 4). A smaller right posterolateral peripheral zone lesion at the apex measuring 11 mm (series 9 image 22), is also suspicious, PI-RADS 4. 4.Seminal vesicles: Normal. 5.Extracapsular extension: None 6.Bladder: Normal. 7.Lymph nodes: There is bulky bilateral pelvic lymphadenopathy along the external iliac chains, measuring 2 cm short axis on the right, 1.5 cm on the left. 8.Osseous structures: No focal marrow replacing abnorm ality. 9.Other: None PI-RADS score: 5, Highly likely PI-RADS score: The presence of a significant prostate cancer is: PI-RADS 1: Very low (Highly unlikely) PI-RADS 2: Low (Unlikely) PI-RADS 3: Intermediate (Equivocal) PI-RADS 4: High (Likely) PI-RADS 5: Very High (Highly likely) (All PI-RADS 3, 4 and 5 lesions are segmented in KindaraaC AD for fusion biopsy) [id number] Procedure Note [facility], Radiology Results Incoming - 05/25/2019 1:46 PM CDT EXAMINATION: MRI PROSTATE WWO CONTRAST CLINICAL HISTORY: C61 Malignant neoplas m of prostate, Prostate Cancer PSA Rising COMPARISON: 05/03/2014. TECHNIQUE: Using a pelvic phased array s urface coil, multiplanar, multisequence MRI of the pelvis was performed with a prostate-specific protocol with and without contrast.. Diffusion weighted images and dynamic contrast enhanced images were performed. The image quality is satisfactory. IMPRESSION: 1.Size: The prostate gland measures 7.2 x 6.8 x 7.1 cm. Calculated prostatic volume (ellipsoid model) is 182 mL. 2.Central gland: Confluent T2 hypointens ity in the left central gland at the apex with reduced ADC value (series 950 image 22), is suspicious for primary tumor, PI-RADS 5, increased in size from prior, previously 1.4 cm. 3.Peripheral zone: There are patchy bila teral areas of linear and wedge-shaped mild T2 hypointensity in the peripheral zone compatible with a benign process such as prostatitis or atrophy (PI-RADS 2). There is a small 6 mm curvilinear focus of diffusio n restriction the left posterior periphera l zone at the mid gland (series 9 image 19), with T2 correlate (series 6 image 21), suspicious for primary tumor (PI- RADS 4). A smaller right posterolateral peripheral zone lesion at the apex measuring 11 mm (series 9 image 22), is also suspicious, PI-RADS 4. 4.Seminal vesicles: Normal. 5.Extracapsular extension: None 6.Bladder: Normal. 7.Lymph nodes: There is bulky bilateral pelvic lymphadenopathy along the external iliac chains, measuring 2 cm short axis on the right, 1.5 cm on the left. 8.Osseous structures: No focal marrow re placing abnormality. 9.Other: None PI-RADS score: 5, Highly likely PI-RADS score: The presence of a signifi cant prostate cancer is: PI-RADS 1: Very low (Highly unlikely) PI-RADS 2: Low (Unlikely) PI-RADS 3: Intermediate (Equivocal) PI-RADS 4: High (Likely) PI-RADS 5: Very High (Highly likely) (All PI-RADS 3, 4 and 5 lesions are segm ented in DynaCAD for fusion biopsy) [id number] Performing Organization Address City/State/Zipcode Phone Number [facility] [address] [place] [address] MRI Knee Right Wo Contrast (05/25/2019 11:30 AM CDT) Specimen Narrative Performed At This result has an attachment that is no t available. EXAMINATION: MRI KNEE WO CONTRAST RIGHT [facility] CLINICAL HISTORY: M25.561 Pain in righ t knee, Cancer history and possible lesion in trochlea night pain x 2 mo TECHNIQUE: Multiplanar multisequence M R imaging of the knee was performed without contrast. COMPARISON: Right knee radiographs dated 10/26/2018 FINDINGS: 1. Cruciate ligaments: No evidence of a tear of the anterior or the posterior cruciate ligaments. 2. Collateral ligaments: Medial collater al ligament is intact. Lateral collateral ligament and biceps femoris tendon are intact. 3. Medial Meniscus: Complex degenerative tear of the posterior horn and body of the medial meniscus with oblique and horizontal components. Borderline meniscal extrusion. No definite displaced meniscal tissue is seen in the gutter or in the notch. 4. Medial Compartment Cartilage: Low-gra de chondral thinning throughout the medial femorotibial compartment without evidence of a focal chondral defect identified. 5. Lateral Meniscus: Intrasubstance dege neration and free edge fraying of the body of the lateral meniscus which does not meet strict criteria for tear. 6. Lateral Compartment Cartilage: No rodger dence of a focal chondral defect of the central cartilage of the lateral femoral condyle. Mild chondral thinning involving the posterior cartilage of the lateral tibial plateau. 7. 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 Focal high-grade chondral defect with internal osteophyte formation in the trochlear sulcus with minimal subchondral bone plate edema. 8. Extensor mechanism: Mild stripping of the prepatellar extensor mechanism aponeurosis. Mild tendinosis of the patellar tendon origin. 9. Effusion: Small joint effusion. 10. Bone marrow: Findings as above. No definite suspic ious bony lesions. 11. Soft tissues: Neurovascular bundle a ppears unremarkable. Small Winn's cyst with a few bodies. IMPRESSION: 1.Complex degenerative tear of the poste rior horn and body of the medial meniscus. 2.Free edge fraying of the body of the lateral meniscu s. 3.Intact cruciate and collateral ligaments. 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 Old high-grade chondral defect of the trochlear sulcus with internal osteophyte formation and subchondral bone plate edema. 5.Small Winn's cyst with a few bodies. 6.Additional findings and details as above. [facility]-[id number] Procedure Note Hm Interface, Radiology Results Incoming - 05/25/2019 11:40 AM CDT EXAMINATION: MRI KNEE WO CONTRAST RIGHT CLINICAL HISTORY: M25.561 Pain in right knee, Cancer history and possible lesion in trochlea night pain x 2 mo TECHNIQUE: Multiplanar multisequence MR imaging of the knee was performed without contrast. COMPARISON: Right knee radiographs date d 10/26/2018 FINDINGS: 1. Cruciate ligaments: No evidence of a tear of the anterior or the posterior cruciate ligaments. 2. Collateral ligaments: Medial collater al ligament is intact. Lateral collateral ligament and biceps femoris tendon are intact. 3. Medial Meniscus: Complex degenerative tear of the posterior horn and body of the medial meniscus with oblique and horizontal components. Borderline meniscal extrusion. No definite displaced meniscal tissue is seen in the gutter or in the notch. 4. Medial Compartment Cartilage: Low-gra de chondral thinning throughout the medial femorotibial compartment without evidence of a focal chondral defect identified. 5. Lateral Meniscus: Intrasubstance dege neration and free edge fraying of the body of the lateral meniscus which does not meet strict criteria for tear. 6. Lateral Compartment Cartilage: No rodger dence of a focal chondral defect of the central cartilage of the lateral femoral condyle. Mild chondral thinning involving the posterior cartilage of the lateral tibial plateau. 7. 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 Focal high-grade chondral defect with internal osteophyte formation in the trochlear sulcus with minimal subchondral bone plate edema. 8. Extensor mechanism: Mild stripping of the prepatellar extensor mechanism aponeurosis. Mild tendinosis of the patellar tendon origin. 9. Effusion: Small joint effusion. 10. Bone marrow: Findings as above. No d efinite suspicious bony lesions. 11. Soft tissues: Neurovascular bundle a ppears unremarkable. Small Winn's cyst with a few bodies. IMPRESSION: 1.Complex degenerative tear of the poste rior horn and body of the medial meniscus. 2.Free edge fraying of the body of the l ateral meniscus. 3.Intact cruciate and collateral ligamen ts. 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 Old high-grade chondral defect of the trochlear sulcus with internal osteophyte formation and subchondral bone plate edema. 5.Small Winn's cyst with a few bodies. 6.Additional findings and details as abo ve. [id number] Performing Organization Address City/State/Zipcode Phone Number [facility] [address] [place] [address] Pv physiologic arterial lower extremity complete w carmen (05/25/2019 10:10 AM CDT) Specimen Narrative Performed At [facility] extremity bilateral. [facility] CLINICAL INFORMATION: I73.9 Peripheral vascular disease unspecified, A23 L LE claudication PAD COMPARISON: none. TECHNIQUE: Ankle brachial indices of the lower legs an d pulse Doppler waveforms and peak systolic velocities. IMPRESSION: 1.Moderate peripheral vascular disease is suggested wi thin the left lower extremity based on ankle-brachial indices. This can be better evaluated with CTA or conventional arteriography as cl inically indicated. 2.No significant peripheral vascular disease is sugges morgan within the right lower extremity. FINDINGS: RIGHT: PSV (mmHg) CARMEN Brachial: 135 High thigh: 203 1.39 Low thigh: 189 1.29 Calf: 202 1.38 Ankle (PT): 186 1.27 Ankle (DP): 174 1.19 Digit: 124 LEFT: PSV (mmHg) CARMEN Brachial: 146 High thigh: 206 1.41 Low thigh: 144 0.99 Calf: 126 0.86 Ankle (PT): 91 0.62 Ankle (DP): 91 0.62 Digit: 66 [facility]-[id number] Procedure Note Interface, Radiology Results Incoming - 05/25/2019 10:37 AM CDT CARMEN extremity bilateral. CLINICAL INFORMATION: I73.9 Peripheral vascular disease unspe cified, A23 LLE claudication PAD COMPARISON: none. TECHNIQUE: Ankle brachial indices of the lower legs and pulse Doppler waveforms and peak systolic velocities. IMPRESSION: 1.Moderate peripheral vascular disease i s suggested within the left lower extremity based on ankle-brachial indices. This can be better evaluated with CTA or conventional arteriography as clinically indicated. 2.No significant peripheral vascular dis ease is suggested within the right lower extremity. FINDINGS: RIGHT: PSV (mmHg) CARMEN Brachial: 135 High thigh: 203 1.39 Low thigh: 189 1.29 Calf: 202 1.38 Ankle (PT): 186 1.27 Ankle (DP): 174 1 .19 Digit: 124 LEFT: PSV (mmHg) CARMEN Brachial: 146 High thigh: 206 1.41 Low thigh: 144 0.99 Calf: 126 0.86 Ankle (PT): 91 0. 62 Ankle (DP): 91 0.6 2 Digit: 66 [facility]-[id number] Performing Organization Address City/[facility] [address] Phone Number [facility] [address] [place] [address] Estimated GFR (05/25/2019 9:34 AM CDT) Estimated GFR 57 (A) mL/min/1.73 [facility] Comment: EMERGENCY CARE Catergory Units Interpretation [facility] G1 >=90 Normal or high RAN G2 60-89 Mildly decreased G3a 45-59 Mildly to moderately decreas ed G3b 30-44 Moderately to severely decre ased G4 15-29 Severely decreased G5 <15 Kidney failure The eGFR was calculated using the Chronic Kidney Disea se Epidemiology Collaboration (CKD-EPI) equation. Interpretation is based on recommendations of the National Kidney Foundation-Kidney Disease Outcomes Ronaldo lity Initiative (NKF-KDOQI) published in 2014. Specimen Blood Performing Organization Address City/State/Zipcode Phone Number DEPARTMENT OF PATHOLOGY AND GENOMIC [address] [address] [place] [address] [facility] [address] [place] [address] AT [facility] POC creatinine (05/25/2019 9:34 AM CDT) POC creatinine 1.2 0.7 - 1.2 [facility] Comment: mg/dl [facility] Chief Design Engineer Name: Live Pizarro Device ID: [id number] Specimen Blood Performing Organization Address City/State/Zipcode Phone Number [facility] DEPARTMENT OF PATHOLOGY AND [address] [place], [place] [address] GENOMIC MEDICINE [facility] [id number] [place], [place] [address] POC urinalysis dipstick (01/26/2019 4:41 PM EMT BASIC) Pathologist Sig nature Color urine, POC Yellow Clarity urine, POC Clear Glucose urine, POC Negative Negative Bilirubin urine, POC Negative Negative Ketones urine, POC Negative Negative Specific gravity urine, 1.020 1.005 - 1.030 POC Blood urine, POC Negative Negative pH urine, POC 7.0 5.0, 5.5, 6.0, 6.5, 7.0, 7.5, 8.0, 8.5 Protein urine, POC Negative Negative Urobilinogen urine, POC <2.0 <2.0 Nitrite urine, POC Negative Negative Leukocyte esterase Negative Negative urine, POC Specimen Urine POC BLADDER SCAN/PVR (01/26/2019 4:33 PM EMT BASIC) Pathologist Sig nature Other 177 mlComment: patient tolerate test well Specimen Urine XR Knee 4+ Vw Right (10/26/2018 3:25 PM CDT) Specimen Addenda Addendum by Nathaniel Quiles II, MD on 10/26/2018 3:42 PM Addendum: On the sunrise view there is a lucency along the lateral trochlea. Does not appear to have any aggressive margins. Narrative Performed At This result has an attachment that is no t available. Right Knee 4 views: AP, Lateral, Notch, [place]. [facility] Possible subtle medial compartment narrowing with no s clerosis of the medial compartment and no osteophytes seen in the medi al compartment. The lateral and anterior compartments are largely preserve d. Performing Organization Address City/State/Zipcode Phone Number [facility] [address] [place] [address] Right Knee Injection Steroid (10/26/2018 2:30 PM CDT) Narrative Performed At [facility], Nathaniel Valadez II, MD 019 12:19 PM Right Knee Injection Steroid Consent given by: patient Timeout: Immediately prior to procedure a time out was called to verify the correct patient, procedure, equipmen t, technical support director and site/side marked as required Supporting Documentation Indications: pain Procedure Details Preparation: Patient was prepped and maribel ped in the usual sterile fashion Location: knee - R knee Right side: Needle size: 25 G Approach: anterolateral Right knee medications administered: 6 mg betamethason e acetate & sodium phosphate 6 mg/mL; 1 mL lidocaine 10 mg/ mL (1 %) Patient tolerance: patient tolerated the procedure wel l with no immediate complications after 08/24/2018 Insurance Payer Benefit Plan / Subscriber ID Effective Dates Phone Addre ss Type Group MEDICARE MEDICARE PART A AND xxxxxxxxxxx 2004-Cyndi HO [facility], [place] Medicare B t AETNA AETNA [facility] xxxxxxxxx 2000-Cyndi Indemnity INDEMLESLYTY t Advance Directives For more information, please contact: [phone] Type Date Recorded 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
--- OUTSIDE RECORDS SUMMARY | 2019-08-25 23:20 | XMS REPORT | Continuity of Care Document ---
:1940 Author Organization [facility] t Address [address] [place] [address] [address] [place] [address] Care Team Providers Name Role Phone Prasanth Bingham MD Primary Care Physician Pedro Pierre MD Attending Clinician Samir Lewis MD Attending Clinician Tawanda Miranda MD Attending Clinician Atul DAS Attending Clinician Unavailable Rory Quiles MD Attending Clinician Milton LAY Attending Clinician Unavailable Akanksha DAS Attending Clinician Unavailable Ronn DAS Attending Clinician Unavailable Blair LAY Attending Clinician Unavailable Dieudonne DAS Attending Clinician Unavailable Payers Payer Name Policy Policy Number Effective Expiration Source Type Date Date MEDICAREMEDICARE PART xxxxxxxxxxx 2004 manisha A AND 00:00:00 Taoist [place] xxxxxxxxx 2000 [facility] 00:00:00 Taoist INDEMNITYxxxxxxxxx1/-PresentIndemnit y Problems Condition Condition Condition Status Onset Resolution Last Treating Co mments Source Name Details Category Date Date Treatment Clinician Date Derangemen Derangemen Disease Active [place] t of t of 4-14 Methodi posterior posterior 00:00: st horn of horn of 00 medial medial meniscus meniscus of right of right knee knee 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 4-14 Me thodi itis of itis of 00:00: st right knee right knee 00 Lymphoma Lymphoma Disease Active [place] 3 Methodi 00:00: st 00 Impotence Impotence Disease Active Jacy ston of organic of organic 3- Al thodi origin origin 00:00: st 00 Elevated Elevated Disease Active 2016-03 [place] PSA PSA 0- Methodi 00:00: st 00 Malignant Malignant Disease Active 2016-03 Jacy ston neoplasm neoplasm 0 Method i of of 00:00: st prostate prostate 00 Hemorrhoid Hemorrhoid Disease Active [place] s s Methodi st GERD GERD Disease Active Overview: [place] (gastroeso (gastroeso has Me thodi phageal phageal difficult st reflux reflux y disease) disease) swallowin g Diverticul Diverticul Disease Active [place] osis osis Methodi st Colon Colon Disease Active [place] polyp polyp Methodi st Hematochez Hematochez Disease Active H janett ia ia Methodi st 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 Meth qian st Allergies, Adverse Reactions, Alerts Allergy Allergy Status Severity Reaction(s) Onset Inactive Treating Comm ents Source Name Type Date Date Clinician Ciproflo Propensi Active Painful / Jacy ston xacin ty to 7-10 swollen Methodi adverse 00:00: ankles st reaction 00 s to drug Family History Family Member Diagnosis Comments Start Date Stop Date Source Natural father Prostate cancer [place] Taoist Natural mother Cataracts [facility] thodist Natural mother Glaucoma [facility] thodist Natural [facility] Social History Social Habit Start Date Stop Date Quantity Comments Source Sex Assigned At M [place] M ethodist Exposure to Not sure [place] Metho dist SARS-CoV-2 (event) Alcohol intake 2019-08-20 2019-08-20 Current [facility] thodist 00:00:00 00:00:00 non-drinker of alcohol (finding) Smoking Status Start Date Stop Date Source Never smoker [place] [facility] Medications Ordered Filled Start Stop Current Ordering Indication Dosage Frequency Signature Comments Components Source Medication Medication Date Date Medication? Clinician (SIG) Name Name sulfamethox 2020- Yes 1{tbl} Q.5D Take 1 [facility] azole-trime 08-22 tablet by Al thodi thoprim 00:00: 23:[address] (Bactrim 00 :00 (two) DS) 800-160 times a mg per day for 5 tablet days. gentamicin 2020-0 2020- No Malignant 80mg [place] (GARAMYCIN) 08-19 neoplasm of Methodi injection 10:15: 10:[address] 80 mg 00 :00 (HCC) alfuzosin 2020-0 Yes 10mg QD Take 10 mg [place] (UROXATRAL) 08-19 by mouth Meth qian 10 mg 24 hr 10:11: nightly. st tablet 52 famotidine 2020-0 Yes 10mg QD Take 10 mg [place] (PEPCID) 10 08-19 by mouth Meth qian MG tablet 10:11: every st 52 evening. sulfamethox 2020-0 2020- No 1{tbl} Q.5D Take 1 [place] azole-trime 08-04 tablet by Al thodi thoprim 00:00: 23:[address] (BACTRIM 00 :00 (two) DS) 800-160 times a mg per day for 6 tablet doses. metroNIDAZO 2020-0 2020- No 500mg Q.61138660 Take 1 Bell LE (FlagyL) 08-04 [id number] tablet Methodi 500 MG 00:00: 23:59 3D ([address] tablet 00 :00 total) by mouth 3 (three) times a day for 9 doses. famotidine 2020-0 2020- No 20mg QD Take 20 mg [place] (PEPCID) 20 08-02 by mouth Met hodi MG tablet 14:18: 00:[address] 50 :00 morning. cilostazoL 2020-0 2020- Yes 100mg Q.5D Take 1 Jacy ston (PLETAL) 5-28 -27 tablet Methodi 100 MG 00:00: 23:59 ([address] tablet 00 :00 total) by mouth 2 (two) times a day for 30 days. cilostazoL 2020-0 2020- No 100mg Q.5D Take 1 Jacy ston (PLETAL) 3- 05-28 tablet Methodi 100 MG 00:00: 00:00 ([address] tablet 00 :00 total) by mouth 2 (two) times a day for 90 days. sulfamethox 2020-0 2020- No 1{tbl} Q.5D Take 1 [place] azole-trime 05-25 tablet by Al thodi thoprim 00:00: 23:[address] (BACTRIM 00 :00 (two) DS) 800-160 times a mg per day for 6 tablet doses. metroNIDAZO 2019- No 500mg Q.03987762 Take 1 [place] LE (Flagyl) 05-25 [id number] tablet Methodi 500 MG 00:00: 23:59 3D ([address] tablet 00 :00 total) by mouth 3 (three) times a day for 9 doses. omeprazole 2019- No Take by Jacy stotracy OT 05-20 03-20 mouth. Methodi (PriLOSEC 09:48: 00:00 OTC) 20 MG 56 :00 EC tablet diclofenac 2019- Acute pain Apply 2 [place] (VOLTAREN) 10-27 of right grams to Methodi 1 % gel 00:00: 00:[address] 00 :00 area BID. diclofenac 2018- No Q.5D Apply [place] (VOLTAREN) 10-26 topically Met hodi 1 % gel 00:00: 00:00 2 (two) st 00 :00 times a day. sildenafil, Yes MAY TAKE [place] for 8-16 UP TO 5 Methodi pulmonary 00:00: TABLET BY hypertersio 00 MOUTH AT n, ONE TIME (REVATIO) 20 mg tablet sildenafil, 2018- No MAY TAKE [place] antihyperte 1 08-15 UP TO 5 Meth qian nsive, 00:00: 00:00 TABLETS BY (REVATIO) 00 :00 MOUTH AT 20 mg ONE TIME tablet Vital Signs Vital Name Observation Time Observation Value Comments Source Systolic blood 2019-08-20 10:11:00 143 mm[Hg] [place] pressure Diastolic blood 2019-08-20 10:11:00 76 mm[Hg] [place] Taoist pressure Heart rate 2019-08-20 10:11:00 84 /min [place] Taoist Body height 2019-08-20 10:11:00 175.3 cm [place] Taoist Body weight 2019-08-20 10:11:00 79.379 kg [place] Taoist BMI 2019-08-20 10:11:00 25.84 kg/m2 Ray Wilburn Body temperature 2019-08-03 14:14:00 37 Melony Ady Wilburn Oxygen saturation in 2019-08-03 14:14:00 96 /min Ray Wilburn Arterial blood by Pulse oximetry Respiratory rate 2019-05-25 12:32:00 14 /min Ady Wilburn Procedures Procedure Date / Time Performing Clinician Source Performed BIOPSY PROSTATE 2019-08-24 00:00:00 Loni Pierre Met dat LIPID PANEL 2019-08-05 12:19:00 Loni Pierre Met hodist COMPREHENSIVE METABOLIC 2019-08-05 12:19:00 Loni Pierre PANEL PROSTATE SPECIFIC ANTIGEN 2019-08-05 12:19:00 Loni Pierre HEMOGLOBIN A1C 2019-08-05 12:19:00 Loni Pierre Met hodist COPY(IES) SENT TO: 2019-08-05 12:19:00 Loni Pierre SD ARTHROCENTESIS 2019-06-15 10:40:00 Hanna Quiles on Taoist ASPIR&/INJ MAJOR JT/BURSA W/O US MRI PROSTATE WWO CONTRAST 2019-05-25 12:44:25 Loni Pierre MRI KNEE WO CONTRAST RIGHT 2019-05-25 11:30:02 Hanna Quiles PV PHYSIOLOGIC ARTERIAL 2019-05-25 10:10:00 Rosalba Miranda LOWER EXTREMITY COMPLETE POC CREATININE 2019-05-25 09:34:00 Loni Pierre Met hodist ESTIMATED GFR 2019-05-25 09:34:00 Loni Pierre Met dat PROSTATE SPECIFIC ANTIGEN 2019-05-10 11:52:00 Loni Pierre POC URINALYSIS DIPSTICK 2019-01-26 16:41:00 Loni Pierre [id number] 2019-01-26 16:33:00 Loni Pierre Met dat PROSTATE SPECIFIC ANTIGEN 2019-01-26 16:10:00 Loni Pierre XR KNEE 4+ VW RIGHT 2018-10-26 15:25:58 Hanna Quiles SD ARTHROCENTESIS 2018-10-26 14:30:00 Hanna Quiles on Taoist ASPIR&/INJ MAJOR JT/BURSA W/O US Plan of Care Planned Activity Planned Date Details Comments Source Future Scheduled 2019-10-02 INFLUENZA VACCINE [place] [facility] Test 00:00:00 [code = INFLUENZA VACCINE] Future Scheduled 2004-11-24 65+ PNEUMOCOCCAL [place] Taoist Test 00:00:00 VACCINE (1 of 2 - PCV13) [code = 65+ PNEUMOCOCCAL VACCINE (1 of 2 - PCV13)] Future Scheduled 1989-11-24 SHINGLES VACCINES (#1) [place] [facility] Test 00:00:00 [code = SHINGLES VACCINES (#1)] Encounters Start End Encounter Admission Attending Care Care Encounter Source Date/Time Date/Time Type Type Clinicians Facility Department ID 2019-08-20 2019-08-20 Outpatient MIKALA [facility] [id number] [place] 00:00:00 00:00:00 LONI 807 Method i 2019-08-20 2019-08-20 Outpatient MIKALA [facility] [id number] [place] 00:00:00 00:00:00 LONI 577 Method i 2019-08-05 2019-08-05 Outpatient MIKALA [facility] [id number] [place] 00:00:00 00:00:00 LONI 323 Method i 2019-08-03 2019-08-03 Outpatient PRASANTH [facility] [id number] [place] 00:00:00 00:00:00 JENNIFER 204 Metho di 2019-06-23 2019-06-23 Outpatient MIKALA [facility] [id number] [place] 00:00:00 00:00:00 LONI [address] 2019-06-15 2019-06-15 Outpatient NOELLE, [facility] [id number] [place] 00:00:00 00:00:00 HANNA [address] 2019-06-14 2019-06-14 Outpatient NOELLE, [facility] [id number] [place] 00:00:00 00:00:00 HANNA [address] 2019-06-01 2019-06-01 Outpatient ROSALBA MIRANDA [facility] [id number] [place] 00:00:00 00:00:[address] 2019-05-25 2019-05-25 Outpatient MIKALA, [facility] [id number] [place] 00:00:00 00:00:00 LONI [address] 2019-05-25 2019-05-25 Outpatient ROSALBA MIRANDA [facility] [id number] [place] 00:00:00 00:00:[address] 2019-05-25 2019-05-25 Outpatient NOELLE, [facility] [id number] [place] 00:00:00 00:00:00 HANNA [address] 2019-05-10 2019-05-10 Outpatient MIKALA [facility] [id number] [place] 00:00:00 00:00:00 LONI [address] Results Test Description Test Time Test Comments Results Result Comments Source Comprehensive metabolic panel 2019-08-06 03:46:00 Test Item Value Reference Range Interpretation Comme nts Glucose (test code = 90 mg/dL 65-99 Fasting 2345-7) reference inter elias BUN (test code = 19 mg/dL 7- 3094-0) Creatinine (test code = 1.23 mg/dL 0.7-1.18 H For patients >49 years of 2160-0) age, the refere nce limitfor Creati nine is approximately 1 3% higher for peopleident ified as -[place]. EGFR Non-Afr. Norwegian 55 > OR = 60 L (test code = 2775) mL/min/1.73m2 EGFR 64 > OR = 60 (test code = 45878-5) mL/min/1.73m2 BUN/creatinine ratio 15 6- 22 (calc) (test code = 3097-3) Sodium (test code = 142 mmol/L 122-612 2790-2) Potassium (test code = 4.5 mmol/L 3.5-5.3 2823-3) Chloride (test code = 105 mmol/L 98-110 5-0) CO2 (test code = 27 mmol/L 20-32 2027-9) Calcium (test code = 9.7 mg/dL 8.6-10.3 85253-8) Protein (test code = 6.6 g/dL 6.1-8.1 2885-2) Albumin, S (test code = 4.4 g/dL 3.6-5.1 1751-7) Globulin, total (test 2.2 1.9- 3.7 g/dL code = 40075-5) (calc) Albumin/globulin ratio 2.0 1.0- 2.5 (test code = 1759-0) (calc) Total bilirubin (test 1.2 mg/dL 0.2-1.2 code = 1975-2) Alkaline phosphatase 44 U/L 35-144 (test code = 6768-6) AST (test code = 15 U/L 10-35 1920-8) ALT (test code = 13 U/L 9-46 1742-6) MALISSA (test code = MALISSA) FASTING:YESFASTING: YES RAC (test code = RAC) Performing Organization Information: Site ID: RGA [facility] Address: [address] [place] [id number] Director: Hanna Peterson Lab Interpretation Abnormal (test code = 32132-9) [place] MethodistLipid [id number] 03:46:00 Test Item Value Reference Range Interpretation Comments Cholesterol, total 123 mg/dL <200 (test code = 2093-3) HDL cholesterol 38 mg/dL > OR = 40 L (test code = 2085-9) Triglycerides (test 99 mg/dL <150 code = 2571-8) LDL cholesterol 67 mg/dL (calc) Reference ra nge: calculated (test <100 Desira ble code = 60253-5) range <100 m g/dL for primary prevention; <7 0 mg/dL for patients with C HD or diabetic patients with > or = 2 CHD risk factors. LDL-C is now calculated using the Juvenal-Monique calculation, which is a validated novel method providin g better accuracy than the Friedewald equation in the estimation of LDL-C. Juvenal S S et al. VIDHI. 2013;310(19): 1701-8549 (http://educati on .QuestDiagnosti Image Socket .com/faq/XRY554 ) Cholesterol/HDL 3.2 <5.0 (calc) ratio (test code = 9830-1) Non-HDL cholesterol 85 <130 mg/dL For sondra ents with (test code = (calc) diabetes plus 1 31911-3) major ASCVD ris k factor, treatin g to a non-HDL-C goal of <100 mg/dL (LDL-C of <70 mg/dL) is considered a therapeutic option. MALISSA (test code = FASTING:YESFASTING MALISSA) : YES RAC (test code = Performing RAC) Organization Information: Site ID: DONNA Name: [facility] Lab Address: [address] [place] [phone] Director: Hanna Peterson Lab Interpretation Abnormal (test code = 37633-1) [place] MethodistHemoglobin [id number] 03:46:00 Test Item Value Reference Range Interpretation Comments Hemoglobin A1C 5.3 <5.7 % of total For the pu rpose of (test code = Hgb screening for t he 4548-4) presence ofdiab etes: <5.7% Consistent with the absence of diabetes5.7-6.4 % Consistent with increased risk for diabetes (prediabetes)> or =6.5% Consiste nt with diabetes T his assay result is consistent with a decreased risko f diabetes. Curre ntly, no consensus ex ists regarding use ofhemoglobin A1 c for diagnosis of di abetes in children. According to [place] er[place] Diabetes Associ ation (ADA)guidelines , hemoglobin A1c <7.0% represents optimalcontrol in non- di abetic patients. Differentmetric s may apply to specif ic patient populat ions. Standards of Al dical Care in Diabetes(ADA). MALISSA (test code = FASTING:YESFASTING MALISSA) : YES RAC (test code = Performing RAC) Organization Information: Site ID: DONNA Name: [facility] Lab Address: [address] [place] [phone] Director: Hanna Peterson [place] MethodistProstate specific [id number] 03:46:00 Test Item Value Reference Interpretation Comments Range PSA (test code = 9.2 ng/mL < OR = 4.0 H The total P SA value 2857-1) from this assay system is standardized ag ainst the WHO standar d. The test result will be approximatel y 20% lower when comp ared to the equimolar-stand ardiz ed total PSA (Allie Coulte r). Comparison of s erial PSA results raul uld be interpreted with this fact in mi nd. This test was performed using the Siemens chemiluminescen t method. Values obtained from different assay methods cannot be usedinterchange ably. PSA levels, regardless ofva lue, should not be interpreted as absoluteevidenc e of the presence or absence of dise ase. MALISSA (test code = FASTING:YESFASTIN MALISSA) G: YES RAC (test code = Performing RAC) Organization Information: Site ID: RGA Name: [facility] [facility] Address: [address] [place] [phone] Director: Hanna Peterson Lab Interpretation Abnormal (test code = 11399-9) [place] MethodistCOPY(IES) SENT TO:2019-08-06 03:46:00Copies/mLComment: [facility] [address] [place] [phone] QUESTFASTING:YESFASTING: YESRay MethodistLargume Joint Arthrocentesis: knee, R [id number] 10:40:00Hanna Quiles II, MD 06/15/2019 11:49 PMLarge Joint Arthrocentesis: knee, R kneeConsent given by: patientSite marked: site markedTimeout: Immediately prior to procedure a time out was called to verify the correct patient, procedure, equipment, marketing support coordinator and site/side marked as required Procedure DetailsUltrasound guided: noPlatelet Rich Plasma Used: no PRP UsedLocation: knee - R knee Right side:Needle size: 25 GApproach: anterolateralRight knee medications administered: 6 mg betamethasone acetate & sodium phosphate 6 mg/mL; 3 mL lidocaine 10 mg/mL (1 %)Patient tolerance: patient tolerated the procedure well with no immediate complicationsE[place] [facility] Prostate Wwo Contrast 2019-05-25 13:43:25Hm Interface, Radiology Results 05/25/2019 1:46 PM CDTEXAMINATION: MRI PROSTATE WWO CONTRASTCLINICAL HISTORY: C61 Malignant neoplasm of prostate, Prostate Cancer PSA RisingCOMPARISON: 05/03/2014.TECHNIQUE: Using a pelvic phased array surface coil, multiplanar, multisequence MRI of the pelvis was performed with a prostate-specific protocol with and without contrast.. Diffusion weighted images and dynamic contrast enhanced images were performed. The image quality is satisfactory.IMPRESS ION:1.Size: The prostate gland measures 7.2 x 6.8 x 7.1 cm. Calculated prostatic volume (ellipsoid model) is 182 mL. 2.Central gland: Confluent T2 hypointensity in the left central gland at the apex with reduced ADC value (series 950 image 22), is suspicious for primary tumor, PI-RADS 5, increased insize from prior, previously 1.4 cm.3.Peripheral zone: There are patchy bilateral areas of linear andwedge-shaped mild T2 hypointensity in the peripheral zone compatible with a benign process such as prostatitis or atrophy (PI-RADS 2). There is a small 6 mm curvilinear focus of diffusion restriction the left posterior peripheral zone at the mid gland (series 9 image 19), with T2 correlate (series 6 image 21), suspicious for primary tumor (PI-RADS 4). A smaller right posterolateral peripheral zone lesion at the apex measuring 11 mm (series 9 image 22), is also suspicious, PI-RADS 4.4.Seminal vesicles: Normal.5.Extracapsular extension: None6.Bladder: Normal.7.Lymph nodes: There is bulky bilateral pelvic lymphadenopathy along the external iliac chains, measuring 2 cm short axis on the right, 1.5 cm on the left.8.Osseous structures: No focal marrow replacing abnormality.9.Other: NonePI-RADS score: 5, Highly likelyPI-RADS score: The presence of a significant prostate cancer is:PI-RADS 1: Very low (Highly unlikely)PI-RADS 2: Low (Unlikely)PI-RADS 3: Intermediate (Equivocal)PI-RADS 4: High (Likely)PI-RADS 5: Very High (Highly likely)(All PI-RADS 3, 4 and 5 lesions are segmented in DynaCAD for fusionbiopsy)[facility]-[id number] MethodistMRI Knee Right Wo [id number] 11:37:04Hm Interface, Radiology Results 05/25/2019 11:40 AM CDTEXAMINATION: MRI KNEE WO CONTRAST RIGHTCLINICAL HISTORY: M25.561 Pain in right knee, Cancer history and possible lesion in trochlea night pain x 2 moTECHNIQUE: Multiplanar multisequence MR imaging of the knee was performed withoutcontrast.COMPARISON: Right knee radiographs dated 10/26/2018FINDINGS:1. Cruciate ligaments: No evidence of a tear of the anterior or the posterior cruciate ligaments.2. Collateral ligaments: Medial collateral ligament is intact. Lateral collateral ligament and biceps femoris tendon are intact.3. Medial Meniscus: Complex degenerative tear of the posterior horn and body of the medial meniscus with oblique and horizontal components. Borderline meniscal extrusion. No definite displaced meniscal tissue is seen in the gutter or in the notch.4. Medial Compartment Cartilage: Low-grade chondral thinning throughout the medial femorotibial compartment without evidence of a focal chondral defect identified.5.Lateral Meniscus: Intrasubstance degeneration and free edge fraying of the body of the lateral meniscus which does not meet strict criteria for tear.6. Lateral Compartment Cartilage: No evidence of a focal chondral defect of the central cartilage of the lateral femoral condyle. Mild chondral thinning involving the posterior cartilage of the lateral tibial plateau.7. Patellofemoral Compartment:Grade II chondromalacia of the medial patellar facet. Focal high-grade chondral defect with internal osteophyte formation in the trochlear sulcus with minimal subchondral bone plate edema. 8. Extensor mechanism: Mild stripping of the prepatellar extensor mechanism aponeurosis. Mild tendinosis of the patellar t endon origin.9. Effusion: Small joint effusion.10. Bone marrow: Findings as above. No definite suspicious bony lesions.11. Soft tissues: Neurovascular bundle appears unremarkable. Small Winn's cyst with a few bodies.IMPRESSION:1.Complex degenerative tear of the posterior horn and body of the medial meniscus.2.Free edge fraying of the body of the lateral meniscus.3.Intact cruciate and collateral ligaments.4.Mild medial femorotibial and patellofemoral osteoarthrosis. Old high-grade chondral defect ofthe trochlear sulcus with internal osteophyte formation and subchondral bone plate edema.5.Small Winn's cyst with a few bodies.6.Additional findings and details as above.[id number] [facility] [id number] 10:34:57 Test Item Value Reference Range Interpretation Comments POC creatinine (test 1.2 mg/dl 0.7-1.2 Operato r Name: [facility] code = 31410-5) Prasanna juan j vice ID: [id number] [place] MethodistEstimated [id number] 10:34:57 Test Item Value Reference Range Interpretation Comments Estimated GFR (test 57 mL/min/1.73 m2 Jeffrey damico Units code = 5488) InterpretationG 1 >=90 Chanel l or highG2 60-89 Mildly decrease dG3a 45-59 Mil dly to moderately decr jcumtM8b 30-44 Moderately to s everely decreasedG4 15-29 Severe ly decreasedG5 <15 Kidney mellisa lureThe eGFR was calcul ated using the Chron Kidney Disease Epidemiology Collaboration ( CKD-EPI) equation. Interpretation is based on recommendati ons of the National dney [facility]-[facility] ey Disease Outcome s Quality Initiat arash (NKF-KDOQI) pub lished in 2013. Lab Interpretation Abnormal (test code = 79810-1) Ray Guerrero physiologic arterial lower extremity complete w liyah 2019-05-25 10:34:51Hm Interface, Radiology Results 05/25/2019 10:37 AM CDTABI extremity bilateral.CLINICAL INFORMATION:I73.9 Peripheral vascular disease unspecified, A23 LLE claudication PADCOMPARISON:none.TECHNIQUE: Ankle brachial indices of the lower legs and pulse Doppler waveforms and peak systolic velocities.IMPRESSION:1.Moderate peripheral vascular disease is suggested within the left lower extremitybased on ankle-brachial indices. This can be better evaluated with CTA or conventional arteriographyas clinically indicated.2.No significant peripheral vascular disease is suggested within the right lower extremity.FINDINGS:RIGHT: PSV (mmHg) ABIBrachial: 135 High thigh: 203 1.39Low thigh: 189 1.29Calf: 202 1.38Ankle (PT): 186 1.27Ankle (DP): 174 1.19Digit: 124 LEFT: PSV (mmHg) ABIBrachial: 146 High thigh: 206 1.41Low thigh: 144 0.99Calf: 126 0.86Ankle (PT): 91 0.62Ankle (DP): 91 0.62Digit: 66 [id number][id number] urinalysis [id number] 16:41:00 Test Item Value Reference Range Interpretation Comments Color urine, POC (test code Yellow = 7574512) Clarity urine, POC (test Clear code = 1393653) Glucose urine, POC (test Negative Negative code = 5966399) Bilirubin urine, POC (test Negative Negative code = 8984832) Ketones urine, POC (test Negative Negative code = 0664869) Specific gravity urine, POC 1.020 1.005-1.030 (test code = 0354978) Blood urine, POC (test code Negative Negative = 7222311) pH urine, POC (test code = 7.0 5.0, 5.5, 6.0, 6.5, 7.0, 7590747) 7.5, 8.0, 8.5 Protein urine, POC (test Negative Negative code = 3543976) Urobilinogen urine, POC <2.0 <2.0 (test code = 1025220) Nitrite urine, POC (test Negative Negative code = 7464121) Leukocyte esterase urine, Negative Negative POC (test code = 7828620) Ray WilburnMartha BLADDER SCAN/[id number] 16:33:00 Test Item Value Reference Range Interpretation Comments Other (test code = 177 ml patient t olerate test 2923) well [facility] Knee Injection [id number] 14:30:00Hanna Quiles II, MD 10/27/2018 12:19 PMRight Knee Injection SteroidConsent given by: patientTimeout: Immediately prior to procedure a time out was called to verify the correct patient, procedure, equipment, marketing support coordinator and site/side marked as required Supporting DocumentationIndications: pain Procedure DetailsPreparation: Patient was prepped and draped in the usual sterile fashionLocation: knee - R knee Right side:Needle size: 25 GApproach: anterolateralRight knee medications administered: 6 mg betamethasone acetate & sodium phosphate 6 mg/mL; 1 mL lidocaine 10 mg/mL (1 %)Patient tolerance: patient tolerated the procedure well with no immediate complicationsRay Wilburn
--- NOTE | 2019-08-26 01:19 | ER ---
Nurse's Notes [facility] Name: Capo Del Real Age: 78 yrs Sex: Male : 1940 Arrival Date: 08/25/2019 Time: 23:17 Bed External Waiting Private MD: Diagnosis: Presentation: 08/24 23:35 Chief complaint: Patient states: Chest pain that began at 2100; States taking OTC lp1 antacids, ASA for relief; continued pain to center of chest on and off; Currently taking Bactrim for UTI. Coronavirus screen: Proceed with normal triage. Ebola Screen: No symptoms or risks identified at this time. Initial Sepsis Screen: Does the patient meet any 2 criteria? No. Patient's initial sepsis screen is negative. Does the patient have a suspected source of infection? No. Patient's initial sepsis screen is negative. Risk Assessment: Do you want to hurt yourself or someone else? Patient reports no desire to harm self or others. Onset of symptoms was August 25, 2019 at 21:00. 23:35 Method Of Arrival: Wheelchair lp1 23:35 Acuity: WAYNE 3 lp1 Triage Assessment: 08/25 00:10 General: Notified of patient leaving at this time by Registration . lp1 Historical: - Allergies: 08/24 23:40 Cipro; lp1 - Home Meds: 23:40 Aspirin Oral [Active]; Pepcid Oral [Active]; cilostazol oral oral [Active]; alfuzosin lp1 oral oral [Active]; - PMHx: 23:41 prostate cancer; lp1 - PSHx: 23:40 back surgery; lp1 - Immunization history:: Adult Immunizations up to date. - Social history:: Smoking status: Patient denies any tobacco usage or history of. Screenin:41 Abuse screen: Denies threats or abuse. Denies injuries from another. Nutritional lp1 screening: No deficits noted. Tuberculosis screening: No symptoms or risk factors identified. Vital Signs: 23:35 BP 143 / 69; Pulse 93; Resp 18; Temp 99(TE); Pulse Ox 100% on R/A; Weight 77.11 kg (R); lp1 Height 5 ft. 9 in. (175.26 cm); Pain 3/10; 23:35 Body Mass Index 25.10 (77.11 kg, 175.26 cm) lp1 ED Course: 23:17 Patient arrived in ED. cl3 23:38 Triage completed. lp1 23:38 Arm band placed on. lp1 Administered Medications: No medications were administered Outcome: 08/25 01:17 Patient left the ED. lp1 Signatures: Bing Quezada RN RN lp1 Mar Holley cl3
[2019-08-26 02:15] VITALS: BP 143/69; TEMP 99; O2SAT 100
== END 2019-08-26 01:17 | disposition left against medical advice (07) ==
LOC: ER 23:17
DX: Z53.21 Procedure and treatment not carried out due to patient leaving prior to being seen by health care provider (principal)
CPT/HCPCS: 99281

== ENCOUNTER 2023-12-12 19:19 | Emergency (ER) | payer OTHER ==
[2023-12-12] MEDS ORDERED: CODEINE 30MG/APAP 300MG TAB ONE ×2 (20:34→20:43)
--- NOTE | 2023-12-12 20:35 | ER ---
Nurse's Notes [facility] Name: Capo Del Real Age: 83 yrs Sex: Male : 1940 Arrival Date: 12/12/2023 Time: 19:19 Bed 9 Private MD: Diagnosis: Retention of urine, unspecified;Acute Urinary Retention , Bladder outlet obstruction Presentation: 12/11 19:53 Chief complaint: Patient states: had surgery on prostate on Friday. I had a catheter tm6 in until Friday. Yesterday and today I've not been peeing much. Today I haven't peed since 12, and when I did go it wasn't much. My bladder and penis hurts. Coronavirus screen: Client denies travel out of the [place] in the last 14 days. Ebola Screen: Patient negative for fever greater than or equal to 101.5 degrees Fahrenheit, and additional compatible Ebola Virus Disease symptoms Patient denies exposure to infectious person. Patient denies travel to an Ebola-affected area in the 21 days before illness onset. No symptoms or risks identified at this time. Initial Sepsis Screen: Does the patient meet any 2 criteria? No. Patient's initial sepsis screen is negative. Does the patient have a suspected source of infection? No. Patient's initial sepsis screen is negative. Risk Assessment: Do you want to hurt yourself or someone else? Patient reports no desire to harm self or others. Onset of symptoms was December 10, 2023. 19:53 Method Of Arrival: Ambulatory tm6 19:53 Acuity: WAYNE 3 tm6 Triage Assessment: 19:55 General: Appears uncomfortable, Behavior is calm, cooperative. Pain: Complains of pain tm6 in pelvis Pain currently is 8 out of 10 on a pain scale. EENT: No signs and/or symptoms were reported regarding the EENT system. Neuro: Level of Consciousness is awake, alert, obeys commands, Oriented to person, place, time, situation. Cardiovascular: Patient's skin is warm and dry. Respiratory: Airway is patent Respiratory effort is even, unlabored, Respiratory pattern is regular, symmetrical. GI: No signs and/or symptoms were reported involving the gastrointestinal system. Abdomen is flat, non-distended. : Reports inability to void, since today at 12. pain in suprapubic area. Derm: No signs and/or symptoms reported regarding the dermatologic system. Musculoskeletal: No signs and/or symptoms reported regarding the musculoskeletal system. Historical: - Allergies: 19:55 Cipro; tm6 - PMHx: 19:55 Prostate Cancer; tm6 - PSHx: 19:55 prostate (Prostate Cancer); tm6 - Immunization history:: Client reports receiving the 2nd dose of the Covid vaccine. - Infectious Disease History:: Denies. - Social history:: Smoking status: Patient denies any tobacco usage or history of. Patient/guardian denies using alcohol. - Family history:: not pertinent. Screenin:00 [facility] ED Fall Risk Assessment (Adult) History of falling in the last 3 months, ha1 including since admission No falls in past 3 months (0 pts) Confusion or Disorientation No (0 pts) Intoxicated or Sedated No (0 pts) Impaired Gait No (0 pts) Mobility Assist Device Used No (0 pt) Altered Elimination No (0 pt) Score/Fall Risk Level 0 - 2 = Low Risk Oriented to surroundings, Maintained a safe environment, Educated pt \T\ family on fall prevention, incl call for assistance when getting out of bed, Hourly rounding (assess needs \T\ fall precautionary measures) done. Abuse screen: Denies threats or abuse. Denies injuries from another. Nutritional screening: No deficits noted. Tuberculosis screening: No symptoms or risk factors identified. Assessment: 20:50 Reassessment: Patient and/or family updated on plan of care and expected duration. Pain ha1 level reassessed. Patient is alert, oriented x 3, equal unlabored respirations, skin warm/dry/pink. Patient states feeling better. Patient states symptoms have improved. Vital Signs: 19:53 BP 154 / 90; Pulse 79; Resp 20; Temp 99.1(O); Pulse Ox 99% on R/A; MAP 106 mmHg; Weight tm6 75.3 kg; Height 5 ft. 7 in. ; Pain 8/10; 20:30 BP 141 / 78; Pulse 85; Resp 17 S; Pulse Ox 98% on R/A; ha1 19:53 Body Mass Index 26.00 (75.30 kg, 170.18 cm) tm6 19:53 Pain Scale: Adult tm6 [place] Coma Score: 12/12 04:53 Eye Response: spontaneous(4). Motor Response: obeys commands(6). Verbal Response: sp4 oriented(5). Total: 15. ED Course: 12/11 19:24 Patient arrived in ED. jj6 19:53 Arm band placed on right wrist. tm6 19:55 Triage completed. tm6 19:58 Patient has correct armband on for positive identification. Placed in gown. Bed in low ha1 position. Call light in reach. Side rails up X 1. Adult w/ patient. 20:06 Ez Geiger MD is Attending Physician. sp4 20:28 Yumi Chun, ROSANNE is Primary Nurse. ha1 20:30 Provided Education on: CAMPOS INSERTION . ha1 20:30 Campos cath inserted, using sterile technique, 16 Fr., by hi, balloon inflated, to ha1 gravity drainage, returned jaylen urine. 20:55 No provider procedures requiring assistance completed. ha1 20:55 Patient did not have IV access during this emergency room visit. ha1 Administered Medications: 20:45 Drug: Acetaminophen-Codeine PO (300 mg-30 mg) 2 tabs PO once; RASS on ADMIN: Combtv4, ha1 Very Agttd3, Agttd2, Rstlss1, AlertClm0, Drwsy-1, Lt Sdtn-2, Mod Sdtn-3, Dp Sdtn-4, UnArsble-5 Route: PO; 20:54 Follow up: Response: No adverse reaction; Marked relief of symptoms; Pain is decreased; ha1 RASS: Alert and Calm (0) Medication: 20:50 VIS not applicable for this client. ha1 Outcome: 20:34 Discharge ordered by . sp4 20:52 Discharged to home ambulatory, with family, ha1 20:52 Condition: stable 20:52 Discharge instructions given to patient, family, Instructed on discharge instructions, follow up and referral plans. Demonstrated understanding of instructions, follow-up care, medications, Prescriptions given X 1, 20:54 Patient left the ED. ha1 Signatures: Donnie Katie jj6 Yumi Chun, RN RN ha1 Ez Geiger MD MD sp4 Brendan David RN RN tm6 Corrections: (The following items were deleted from the chart) 12/12 03:07 12/11 21:00 Reassessment: Patient and/or family updated on plan of care and expected ha1 duration. Pain level reassessed. Patient is alert, oriented x 3, equal unlabored respirations, skin warm/dry/pink. ha1
--- NOTE | 2023-12-12 20:35 | EDPHYS ---
Physician Documentation [facility] Name: Capo Del Real Age: 83 yrs Sex: Male : 1940 Arrival Date: 12/12/2023 Time: 19:19 Bed 9 Private MD: ED Physician Ez Geiger HPI: 12/11 20:06 This 83 yrs old Male presents to ER via Ambulatory with complaints of Urinary sp4 Retention, Neck and Upper Back Pain, Post Surgical Pain. 12/12 04:52 Patient complains of acute bladder discomfort and urinary retention starting at noon sp4 today. Patient states he has had prostate transurethral surgery by his urologist in [place] 3 days ago. . Historical: - Allergies: 12/11 19:55 Cipro; tm6 - PMHx: 19:55 Prostate Cancer; tm6 - PSHx: 19:55 prostate (Prostate Cancer); tm6 - Immunization history:: Client reports receiving the 2nd dose of the Covid vaccine. - Infectious Disease History:: Denies. - Social history:: Smoking status: Patient denies any tobacco usage or history of. Patient/guardian denies using alcohol. - Family history:: not pertinent. ROS: 12/12 04:53 Constitutional: Negative for fever, chills, and weight loss, Positive for urinary sp4 retention All other systems are negative, Exam: 04:53 Constitutional: This is a well developed, well nourished patient who is awake, alert, sp4 and in no acute distress. Head/Face: Normocephalic, atraumatic. Eyes: Pupils equal round and reactive to light, extra-ocular motions intact. Lids and lashes normal. Conjunctiva and sclera are not injected. Cornea within normal limits. Periorbital areas with no swelling, redness, or edema. ENT: Nares patent. No nasal discharge, no septal abnormalities noted. Tympanic membranes are normal and external auditory canals are clear. Oropharynx with no redness, swelling, or masses, exudates, or evidence of obstruction, uvula midline. Mucous membranes moist. Neck: Trachea midline, no thyromegaly or masses palpated, and no cervical lymphadenopathy. Supple, full range of motion without nuchal rigidity, or vertebral point tenderness. Chest/axilla: Normal chest wall appearance and motion. Nontender with no deformity. No lesions are appreciated. Cardiovascular: Regular rate and rhythm with a normal S1 and S2. No gallops, murmurs, or rubs. Normal PMI, no JVD. No pulse deficits. Respiratory: Lungs have equal breath sounds bilaterally, clear to auscultation and percussion. No rales, rhonchi or wheezes noted. No increased work of breathing, no retractions or nasal flaring. Abdomen/GI: Soft, with normal bowel sounds. No distension or tympany. No guarding or rebound. No evidence of tenderness throughout. Back: No spinal tenderness. No costovertebral tenderness. Skin: Warm, dry with normal turgor. Normal color with no rashes, no lesions, and no evidence of cellulitis. MS/ Extremity: Pulses equal, no cyanosis. Neurovascular intact. Full, normal range of motion. Neuro: Awake and alert, GCS 15, oriented to person, place, time, and situation. Cranial nerves II-XII grossly intact. Motor strength 5/5 in all extremities. Sensory grossly intact. Psych: Awake, alert, with orientation to person, place and time. Behavior, mood, and affect are within normal limits Vital Signs: 12/11 19:53 BP 154 / 90; Pulse 79; Resp 20; Temp 99.1(O); Pulse Ox 99% on R/A; MAP 106 mmHg; Weight tm6 75.3 kg; Height 5 ft. 7 in. ; Pain 8/10; 20:30 BP 141 / 78; Pulse 85; Resp 17 S; Pulse Ox 98% on R/A; ha1 19:53 Body Mass Index 26.00 (75.30 kg, 170.18 cm) tm6 19:53 Pain Scale: Adult tm6 [place] Coma Score: 12/12 04:53 Eye Response: spontaneous(4). Motor Response: obeys commands(6). Verbal Response: sp4 oriented(5). Total: 15. Procedures: 12/11 20:33 Ornelas cath inserted by myself - 16 Fr. Urine output = 600 ml's. Patient tolerated well. sp4 Leg bag provided . MDM: 20:20 Patient medically screened. sp4 12/12 04:54 Differential diagnosis: Degenerative Disc Disease Diabetic Neuropathy Spondylosis. Data sp4 reviewed: vital signs, nurses notes. ED course: Catheter placed to alleviate urinary retention. Patient stable for discharge home.. 12/11 20:24 Order name: Ornelas; Complete Time: 20:28 sp4 12/11 20:31 Order name: Leg Bag; Complete Time: 20:54 sp4 Administered Medications: 12/11 20:45 Drug: Acetaminophen-Codeine PO (300 mg-30 mg) 2 tabs PO once; RASS on ADMIN: Combtv4, ha1 Very Agttd3, Agttd2, Rstlss1, AlertClm0, Drwsy-1, Lt Sdtn-2, Mod Sdtn-3, Dp Sdtn-4, UnArsble-5 Route: PO; 20:54 Follow up: Response: No adverse reaction; Marked relief of symptoms; Pain is decreased; ha1 RASS: Alert and Calm (0) Disposition Summary: 12/12/23 20:34 Discharge Ordered Notes: Location: Home sp4 Problem: new sp4 Symptoms: have improved sp4 Condition: Stable sp4 Diagnosis - Retention of urine, unspecified sp4 - Acute Urinary Retention , Bladder outlet obstruction sp4 Followup: sp4 - With: Private Physician - When: 7 - 10 days - Reason: Recheck today's complaints Discharge Instructions: - Discharge Summary Sheet sp4 - Acute Urinary Retention, Male sp4 Forms: - Patient Portal Instructions sp4 Prescriptions: - acetaminophen-codeine 300-30 mg Oral tablet - take 1 tablet ORAL route every 8 hours PRN pain; 20 tablet; Refills: 0, Product sp4 Selection Permitted Signatures: Yumi Chun RN RN ha1 Ez Geiger MD MD sp4 Brendan David RN RN tm6 Corrections: (The following items were deleted from the chart) 12/12 04:53 04:52 Patient complains of acute bladder discomfort and urinary retention starting at sp4 noon today. Patient states he has had prostate transurethral surgery by his urologist in [place] 2 days ago. . sp4
[2023-12-13 00:27] VITALS: BP 154/90; TEMP 99.1; O2SAT 99
== END 2023-12-12 20:54 | disposition home or self-care (01) ==
LOC: ER 19:19
PROC: 0T9B70Z Drainage of Bladder with Drainage Device, Via Natural or Artificial Opening (ICD-10-PCS; principal; 2023-12-12)
DX: N32.0 Bladder-neck obstruction (principal); Z98.890 Other specified postprocedural states; Z85.46 Personal history of malignant neoplasm of prostate
CPT/HCPCS: 51702; 99284

== ENCOUNTER 2023-12-16 06:28 | Observation (INO) | payer OTHER ==
[2023-12-16 07:04] LABS: Absolute Basophils 0.1 K/uL (0-0.5); Absolute Eosinophils 0.3 K/uL (0-0.5); Absolute Lymphocytes (CBC) 2.4 K/uL (0.7-4.9); Absolute Monocytes 1.1 K/uL (0.1-1.3); Absolute Neutrophil 4.6 K/uL (1.8-8.0); Basophils % 0.8 % (0-1.3); Eosinophils % 3.1 % (0-4.4); Hemoglobin 11.5 g/dL (13.6-17.9); Lymphocytes % 28.4 % (15.3-44.8); MCH 28.6 pg (27.0-35.0); MCV 86.5 fL (80-100); MPV 9.1 fL (7.6-11.3); Monocytes % 13.5 % (3.3-12.3); Neutrophils % 54.2 % (41.7-73.7); Nucleated Red Blood Cells % 0.1 % (0-0); Platelets 259 thou/uL (152-406); RBC Red Blood Cell Count 4.04 M/uL (4.33-5.43); Red Cell Distribution Width 19.1 % (12.1-15.2)
[2023-12-16] MEDS ORDERED: NA CHLORIDE 0.9% 1,000 ML ONE (07:15)
[2023-12-16] MEDS ORDERED: ASPIRIN 81 MG CHEWABLE TABLET ONE (07:15)
[2023-12-16 07:17] LABS: PT Prothrombin Time 11.7 SECONDS (9.4-12.5); Protime INR 1.05
[2023-12-16 07:19] LABS: Albumin 3.9 g/dL (3.4-5.0); Albumin/Globulin Ratio 1.4 (1.1-1.8); Bilirubin Direct 0.2 mg/dL (0-0.2); Bilirubin Indirect, Calculated 0.5 mg/dL (0.2-0.8); Bilirubin Total 0.7 mg/dL (0.2-1.0); Globulin 2.7 g/dL (2.3-3.5); Magnesium 2.1 mg/dL (1.6-2.4); Protein, Total 6.6 g/dL (6.4-8.2); Troponin High Sensitivity 10.4 pg/mL (<58.9)
--- NOTE | 2023-12-16 07:40 | ER ---
Nurse's Notes [facility] Name: Capo Del Real Age: 83 yrs Sex: Male : 1940 Arrival Date: 12/16/2023 Time: 06:28 Bed 6 Private MD: Diagnosis: Chest pain, unspecified Presentation: 12/15 06:42 Chief complaint: Patient states: Having left chest pain more on the side by my breast. vc1 Coronavirus screen: Client denies travel out of the [place] in the last 14 days. At this time, the client does not indicate any symptoms associated with coronavirus-19. Ebola Screen: Patient negative for fever greater than or equal to 101.5 degrees Fahrenheit, and additional compatible Ebola Virus Disease symptoms Patient denies exposure to infectious person. Patient denies travel to an Ebola-affected area in the 21 days before illness onset. No symptoms or risks identified at this time. Initial Sepsis Screen: Does the patient meet any 2 criteria? No. Patient's initial sepsis screen is negative. Does the patient have a suspected source of infection? No. Patient's initial sepsis screen is negative. Risk Assessment: Do you want to hurt yourself or someone else? Patient reports no desire to harm self or others. Onset of symptoms was December 15, 2023. 06:42 Method Of Arrival: Ambulatory vc1 06:42 Acuity: WAYNE 3 vc1 Triage Assessment: 06:46 General: Appears in no apparent distress. comfortable, slender, well groomed, well vc1 developed, well nourished, Behavior is calm, cooperative, appropriate for age. Pain: Complains of pain in anterior aspect of left upper chest and left lateral anterior chest Pain currently is 5 out of 10 on a pain scale. Quality of pain is described as sharp. EENT: No deficits noted. No signs and/or symptoms were reported regarding the EENT system. Neuro: Level of Consciousness is awake, alert, obeys commands, Oriented to person, place, time, situation, Appropriate for age. Cardiovascular: Reports chest pain, Capillary refill < 3 seconds Patient's skin is warm and dry. Chest pain is described as mild, Pain is 5 out of 10 on a pain scale. Respiratory: Airway is patent Respiratory effort is even, unlabored, Respiratory pattern is regular, symmetrical. GI: No deficits noted. No signs and/or symptoms were reported involving the gastrointestinal system. : No deficits noted. No signs and/or symptoms were reported regarding the genitourinary system. Derm: Skin is intact, is healthy with good turgor, Skin is dry, Skin is normal, Skin temperature is warm. Musculoskeletal: Circulation, motion, and sensation intact. Range of motion: intact in all extremities. Historical: - Allergies: 06:44 Cipro; vc1 - PMHx: 06:44 Prostate Cancer; vc1 - PSHx: 06:44 prostate (te); vc1 - Immunization history:: Client reports having NOT received the Covid vaccine. - Infectious Disease History:: Denies. - Social history:: Smoking status: Patient denies any tobacco usage or history of. Screenin:45 [facility] ED Fall Risk Assessment (Adult) History of falling in the last 3 months, vc1 including since admission No falls in past 3 months (0 pts) Confusion or Disorientation No (0 pts) Intoxicated or Sedated No (0 pts) Impaired Gait No (0 pts) Mobility Assist Device Used No (0 pt) Altered Elimination No (0 pt) Score/Fall Risk Level 0 - 2 = Low Risk Oriented to surroundings, Maintained a safe environment, Educated pt \T\ family on fall prevention, incl call for assistance when getting out of bed. Abuse screen: Denies threats or abuse. Nutritional screening: No deficits noted. Tuberculosis screening: No symptoms or risk factors identified. Assessment: 06:48 Pain: Pain began last night. vc1 07:19 Reassessment: Patient appears in no apparent distress at this time. Patient and/or hb family updated on plan of care and expected duration. Pain level reassessed. Patient is alert, oriented x 3, equal unlabored respirations, skin warm/dry/pink. Vital Signs: 06:42 BP 149 / 76; Pulse 62; Resp 18; Temp 97.7; Pulse Ox 96% ; Weight 75.3 kg; Height 5 ft. vc1 7 in. ; Pain 5/10; 07:19 BP 137 / 69; Pulse 63; Resp 16; Pulse Ox 100% on R/A; hb 06:42 Body Mass Index 26.00 (75.30 kg, 170.18 cm) vc1 06:42 Pain Scale: Adult vc1 ED Course: 06:29 Patient arrived in ED. jj6 06:40 Soto Prieto MD is Attending Physician. stephen 06:44 Triage completed. vc1 06:45 Arm band placed on right wrist. vc1 06:47 Patient has correct armband on for positive identification. Placed in gown. Bed in low vc1 position. Call light in reach. Side rails up X2. Adult w/ patient. campus rep on. Pulse ox on. NIBP on. 06:48 Inserted saline lock: 22 gauge in right upper arm, using aseptic technique. Blood vc1 collected. Flushed with 10 mL NS. Patient maintains SpO2 saturation greater than 95% on room air. 07:03 Vincent Odell, RN is Primary Nurse. bp 07:21 XRAY Chest (1 view) In Process Unspecified. EDMS 07:35 CT Chest For PE Angio In Process Unspecified. EDMS 08:20 initiated transfer to [facility]. bd 08:52 pt denied at [facility] due to no beds at this time, per Rosi. bd 09:27 Porfirio Quintanilla MD is Hospitalizing Provider. bd 10:42 No provider procedures requiring assistance completed. Patient admitted, IV remains in hb place. 15:44 Provided Education on: n/a. bp Administered Medications: 07:00 Drug: NS 0.9% IV 1000 ml IV at 125 ml/hr continuous Route: IV; Rate: 125 ml/hr; Site: bp right antecubital; 10:35 Follow up: IV Status: Infusion continued upon admission bp 07:55 Not Given (Patient Refused): aspirinchewable tablet 81 mg PO once bp Medication: 06:46 VIS not applicable for this client. vc1 Outcome: 07:39 ER care complete, transfer ordered by . stephen 09:30 Decision to Hospitalize by Provider. bd 10:43 Admitted to ER Hold. Please see [facility] for further documentation. hb 10:43 Condition: stable 10:43 Instructed on the need for admit, Demonstrated understanding of instructions, 17:43 Patient left the ED. bp Signatures: Dispatcher [employer] EDMS Kierra Barry bd Soto Prieto MD MD cha Baxter, Heather, RN RN Vincent Odell, RN RN bp Katie Fields jj6 Kady Jim RN RN vc1
--- NOTE | 2023-12-16 07:40 | EDPHYS ---
Physician Documentation [facility] Name: Capo Del Real Age: 83 yrs Sex: Male : 1940 Arrival Date: 12/16/2023 Time: 06:28 Bed 6 Private MD: ED Physician Soto Prieto HPI: 12/15 06:46 This 83 yrs old Male presents to ER via Ambulatory with complaints of Chest stephen Pain, High Blood Pressure. 06:46 The patient or guardian reports chest pain that is located primarily in the anterior stephen chest wall, left. Onset: 7 day(s) ago. The pain does not radiate. Associated signs and symptoms: The patient has no apparent associated signs or symptoms. The chest pain is described as squeezing. Modifying factors: The symptoms are alleviated by nothing. the symptoms are aggravated by nothing. Severity of pain: At its worst the pain was moderate in the emergency department the pain has improved moderately. The patient has not experienced similar symptoms in the past. Historical: - Allergies: 06:44 Cipro; vc1 - PMHx: 06:44 Prostate Cancer; vc1 - PSHx: 06:44 prostate (te); vc1 - Immunization history:: Client reports having NOT received the Covid vaccine. - Infectious Disease History:: Denies. - Social history:: Smoking status: Patient denies any tobacco usage or history of. ROS: 06:47 Constitutional: Negative for fever, chills, and weight loss, Eyes: Negative for injury, stephen pain, redness, and discharge, ENT: Negative for injury, pain, and discharge, Neck: Negative for injury, pain, and swelling, Respiratory: Negative for shortness of breath, cough, wheezing, and pleuritic chest pain, Abdomen/GI: Negative for abdominal pain, nausea, vomiting, diarrhea, and constipation, Back: Negative for injury and pain, : Negative for injury, bleeding, discharge, and swelling, MS/Extremity: Negative for injury and deformity, Skin: Negative for injury, rash, and discoloration, Neuro: Negative for headache, weakness, numbness, tingling, and seizure, Psych: Negative for depression, anxiety, suicide ideation, homicidal ideation, and hallucinations, Allergy/Immunology: Negative for hives, rash, and allergies, Endocrine: Negative for neck swelling, polydipsia, polyuria, polyphagia, and marked weight changes, Hematologic/Lymphatic: Negative for swollen nodes, abnormal bleeding, and unusual bruising, 06:47 Cardiovascular: Positive for chest pain, Exam: 06:47 Constitutional: This is a well developed, well nourished patient who is awake, alert, stephen and in no acute distress. Head/Face: Normocephalic, atraumatic. Eyes: Pupils equal round and reactive to light, extra-ocular motions intact. Lids and lashes normal. Conjunctiva and sclera are non-icteric and not injected. Cornea within normal limits. Periorbital areas with no swelling, redness, or edema. ENT: Nares patent. No nasal discharge, no septal abnormalities noted. Tympanic membranes are normal and external auditory canals are clear. Oropharynx with no redness, swelling, or masses, exudates, or evidence of obstruction, uvula midline. Mucous membranes moist. Neck: Trachea midline, no thyromegaly or masses palpated, and no cervical lymphadenopathy. Supple, full range of motion without nuchal rigidity, or vertebral point tenderness. No Meningismus. Chest/axilla: Normal chest wall appearance and motion. Nontender with no deformity. No lesions are appreciated. Cardiovascular: Regular rate and rhythm with a normal S1 and S2. No gallops, murmurs, or rubs. Normal PMI, no JVD. No pulse deficits. Respiratory: Lungs have equal breath sounds bilaterally, clear to auscultation and percussion. No rales, rhonchi or wheezes noted. No increased work of breathing, no retractions or nasal flaring. Abdomen/GI: Soft, non-tender, with normal bowel sounds. No distension or tympany. No guarding or rebound. No evidence of tenderness throughout. Back: No spinal tenderness. No costovertebral tenderness. Full range of motion. Male : Normal genitalia with no discharge or lesions. Skin: Warm, dry with normal turgor. Normal color with no rashes, no lesions, and no evidence of cellulitis. MS/ Extremity: Pulses equal, no cyanosis. Neurovascular intact. Full, normal range of motion. Neuro: Awake and alert, GCS 15, oriented to person, place, time, and situation. Cranial nerves II-XII grossly intact. Motor strength 5/5 in all extremities. Sensory grossly intact. Cerebellar exam normal. Normal gait. Psych: Awake, alert, with orientation to person, place and time. Behavior, mood, and affect are within normal limits. 06:47 ECG was reviewed by the Attending Physician. 06:47 Musculoskeletal/extremity: Extremities: all appear grossly normal, with no appreciated pain with palpation, ROM: no acute changes, intact in all extremities, full active range of motion, full passive range of motion, Circulation is intact in all extremities. Sensation intact. Compartment Syndrome exam of affected extremity: is normal. Weight bearing: able to fully bear weight, Tendon exam: specific tendon testing normal through active and passive range of motion DVT Exam: No signs of deep vein thrombosis. no pain, no swelling, no tenderness, negative Homans' sign noted on exam, no appreciated bluish discoloration, no erythema, no increased warmth, Vital Signs: 06:42 BP 149 / 76; Pulse 62; Resp 18; Temp 97.7; Pulse Ox 96% ; Weight 75.3 kg; Height 5 ft. vc1 7 in. ; Pain 5/10; 07:19 BP 137 / 69; Pulse 63; Resp 16; Pulse Ox 100% on R/A; hb 06:42 Body Mass Index 26.00 (75.30 kg, 170.18 cm) vc1 06:42 Pain Scale: Adult vc1 MDM: 06:40 Medical Screening Exam initiated stephen 06:49 Differential diagnosis: abnormal EKG, acute myocardial infarction, acute pericarditis, stephen anxiety, chest wall pain, Cholelithiasis costochondritis, esophagitis, gastritis, gastroesophageal reflux disease (GERD), myocarditis, pancreatitis, peptic ulcer disease, pericarditis, pleurisy, pneumonia, pneumothorax, pulmonary embolus, stable angina, thoracic aortic disection, unstable angina. HEART Score: History: Slightly Suspicious (0), ECG: Normal (0), Age: > or = 65 years (2), Risk Factors: > or = 3 Risk factors for atherosclerotic disease (2), [Hypercholesterolemia] [Hypertension] [+ Family HX] Troponin: < or = 1 x Normal Limit (0). The patient was given aspirin in the Emergency Department. LINK Risk Score: 1 - patient's age is greater or equal to 65 years, 1 - Three or more CAD risk factors, TOTAL SCORE = 2. Data reviewed: vital signs, nurses notes, lab test result(s), EKG, radiologic studies, CT scan, plain films. Consideration of Admission/Observation Patient was admitted/placed on observation. Escalation of care including admission/observation considered. I considered the following discharge prescriptions or medication management in the emergency department Medications were administered in the Emergency Department. See MAY. 12/15 06:40 Order name: Basic Metabolic Panel; Complete Time: 07:33 stephen 12/15 06:40 Order name: CBC with Diff; Complete Time: 07:33 12/15 06:40 Order name: LFT's; Complete Time: 07:33 12/15 06:40 Order name: Magnesium; Complete Time: 07:33 stephen 12/15 06:40 Order name: NT PRO-BNP; Complete Time: 07:33 stephen 12/15 06:40 Order name: PT-INR; Complete Time: 07:33 stephen 12/15 06:40 Order name: Troponin HS; Complete Time: 07:33 stephen 12/15 06:40 Order name: Lipase; Complete Time: 07:33 [facility] 12/15 09:37 Order name: Basic Metabolic Panel [facility] 12/15 09:37 Order name: Basic Metabolic Panel [facility] 12/15 09:37 Order name: CBC with Automated Diff [facility] 12/15 09:37 Order name: CBC with Automated Diff [facility] 12/15 09:37 Order name: Lipid Profile [facility] 12/15 09:37 Order name: Lipid Profile [facility] 12/15 09:37 Order name: Troponin High Sensitivity [facility] 12/15 09:37 Order name: Troponin High Sensitivity [facility] 12/15 09:37 Order name: Troponin High Sensitivity [facility] 12/15 09:37 Order name: Troponin High Sensitivity [facility] 12/15 16:36 Order name: Troponin HS bp 12/15 17:07 Order name: Troponin High Sensitivity [facility] 12/15 06:40 Order name: XRAY Chest (1 view); Complete Time: 11:46 stephen 12/15 06:46 Order name: CT Chest For PE Angio; Complete Time: 11:46 stephen 12/15 09:37 Order name: Echo with Doppler [facility] 12/15 06:40 Order name: Cardiac monitoring; Complete Time: 06:48 stephen 12/15 06:40 Order name: EKG - Nurse/Tech; Complete Time: 06:48 stephen 12/15 06:40 Order name: IV Saline Lock; Complete Time: 07:03 12/15 06:40 Order name: Labs collected and sent; Complete Time: 07:03 [facility] 12/15 06:40 Order name: O2 Per Protocol; Complete Time: 06:48 [facility] 12/15 06:40 Order name: O2 Sat Monitoring; Complete Time: 06:48 [facility] EC:47 Rate is 67 beats/min. Rhythm is regular. QRS [place] is Normal. [place] interval is normal. QRS stephen interval is normal. QT interval is normal. No Q waves. T waves are Normal. No ST changes noted. Clinical impression: NSR w/ Non-specific ST/T Changes and No evidence of ischemia. Interpreted by me. Reviewed by me. Administered Medications: 07:00 Drug: NS 0.9% IV 1000 ml IV at 125 ml/hr continuous Route: IV; Rate: 125 ml/hr; Site: bp right antecubital; 10:35 Follow up: IV Status: Infusion continued upon admission bp 07:55 Not Given (Patient Refused): aspirinchewable tablet 81 mg PO once bp Disposition Summary: 12/16/23 09:30 Hospitalization Ordered Notes: Hospitalization Status: Observation bd Provider: Porfirio Quintanilla bd Condition: Stable(12/16/23 09:30) bd Problem: new(12/16/23 09:30) bd Bed/Room Type: Standard bd Location: [facility] ER HOLD(12/16/23 17:13) Room Assignment: ERHOLD-(12/16/23 17:13) iw Diagnosis - Chest pain, unspecified(12/16/23 09:30) bd Forms: - Medication Reconciliation Form bd - SBAR form bd - Leadership Thank You Letter bd Signatures: Dispatcher [employer] EDMS Kierra Barry Corey, MD MD cha Williams, Irene, RN RN iw [place] RN RN Vincent Cortez RN RN bp Kady Jim RN RN vc1 Sid Pierce MD MD rt Corrections: (The following items were deleted from the chart) 06:41 06:41 Chest Single View+RAD.RAD.BRZ ordered. EDMS EDMS 06:46 06:46 Chest For PE Angio+CT.RAD.BRZ ordered. EDMS EDMS 09:27 07:39 TO PROTESTANT stephen bd 09:27 07:39 [facility] stephen bd 09:27 07:39 Higher level of care stephen bd : 07:39 Stable stephen bd : 07:39 new stephen bd : 07:39 have improved stephen bd : 07:39 Chest pain, unspecified stephen bd 11: 09:30 Telemetry/MedSurg (observation) bd hb 11: 09:30 bd hb 15:37 11:01 [facility] ER HOLD hb bd 15:37 11:01 ERHOLD- hb bd 16:56 15:37 207 bd iw 17:13 15:37 Telemetry/MedSurg (observation) bd iw 17:13 16:56 iw iw
--- NOTE | 2023-12-16 08:07 | RAD REPORT ---
EXAMINATION: CTA CHEST PE CLINICAL INDICATION: Chest pain TECHNIQUE: 100 cc 370 Isovue administered intravenously. This examination was performed according to an angiographic protocol with 3D post-processing. This involves 3D reconstructions, MIPs, volume rendered images and/or shaded surface rendering. One or more of the following dose reduction techniqu es were used: Automated exposure control, adjustment of the mA and/or kV according to patient size, and/or iterative reconstruction. Unless otherwise specified, incidental findings do not require dedic ated imaging follow-up. [id number]. COMPARISON: No prior exam. FINDINGS: A pulmonary embolus is not seen. An aortic dissection not noted.. Ascending thoracic aorta 4 cm. No pleural effusion. No pericardial effusion. Lungs are clear. Old compression fracture T12 vertebral body. Bilateral axillary lymphadenopathy. Left greater than right. Splenomegaly The wall of the esophagus appears thickened IMPRESSION: No evidence of a pulmonary embolism Bilateral axillary lymphadenopathy may represent lymphoma or metastatic disease. The wall of the esophagus appears thickened which may indicate inflammation
--- NOTE | 2023-12-16 08:08 | RAD REPORT ---
Procedure: Chest Single View HISTORY: Chest pain COMPARISON: 2019 FINDINGS: The lungs appear clear of acute infiltrate. Lungs are hyperaerated. No significant pleural effusion noted. The heart is probably borderline enlarged. IMPRESSION: No acute abnormality is displayed.
[2023-12-16] MEDS ORDERED: ACETAMINOPHEN 500 MG TAB PO PRN (09:31)
--- NOTE | 2023-12-16 09:39 | P.HP ---
Certification for Inpatient Patient admitted to: Observation With expected LOS: <2 Midnights Patient will require the following post-hospital care: None Practitioner: I am a practitioner with admitting privileges, knowledge of patient current condition, hospital course, and medical plan of care. Services: Services provided to patient in accordance with Admission requirements found in Title 42 Section 412.3 of the Code of Federal Regulations Patient History Date of Service: 12/16/23 Reason for admission: Chest pain rule out acute coronary syndrome History of Present Illness: Patient is an 83-year-old gentleman who recently had prostate surgery who presents to the emergency room with chest discomfort. Pain was mainly in the anterior chest wall with no significant radiation. Patient denies being short of breath. Patient states that the pain has subsided for the most part. Patient's workup in the emergency room was negative. Troponins were negative. EKG with no acute abnormality. Patient is slightly bradycardic but within normal blood pressure. At this time, patient will be admitted for observation. - Past Medical/Surgical History -: Prostate cancer -: Prostatectomy - Family History Father Family History: Reviewed- Non-Contributory - Social History Smoking Status: Never smoker Alcohol use: No CD- Drugs: No Review of Systems 10-point ROS is otherwise unremarkable Physical Examination - Vital Signs Temperature: 98 F Blood Pressure: 140/80 Pulse: 80 Respirations: 18 Pulse Ox (%): 95 - Physical Exam General: Alert, In no apparent distress, Oriented x3 HEENT: Atraumatic, PERRLA, Mucous membr. moist/pink, EOMI, Sclerae nonicteric Neck: Supple, 2+ carotid pulse no bruit, No LAD, Without JVD or thyroid abnormality Respiratory: Clear to auscultation bilaterally, Normal air movement Cardiovascular: Regular rate/rhythm, Normal S1 S2 Gastrointestinal: Normal bowel sounds, Soft and benign, Non-distended, No tenderness Musculoskeletal: No clubbing, No swelling, No tenderness Integumentary: No rashes Neurological: Normal gait, Normal speech, Normal strength at 5/5 x4 extr, Normal tone, Sensation intact, Cranial nerves 3-12 intact, Normal affect Lymphatics: No axilla or inguinal lymphadenopathy - Studies Laboratory Data (last 24 hrs) 12/16/23 12/16/23 12/16/23 06:50 06:50 06:50 WBC 8.50 Hgb 11.5 L Hct 35.0 L Plt Count 259 PT 11.7 INR 1.05 Sodium 141 Potassium 4.0 BUN 22 H Creatinine 1.32 H Glucose 100 Magnesium 2.1 Total Bilirubin 0.7 AST 11 L ALT 17 Alkaline Phosphatase 49 Lipase 36 Assessment & Plan - Problems (Diagnosis) (1) Chest pain, rule out acute myocardial infarction Current Visit: Yes Status: Acute (2) Prostate cancer metastatic to multiple sites Current Visit: Yes Status: Acute - Plan -High-sensitivity troponin -Echocardiogram -Outpatient stress test if work-up in hospital negative -Repeat EKG -Work-up for other etiologies of cardiac chest pain if troponins remain negative -Lipid profile -Stock House Worker regarding modifying risk for cardiac disease Discharge Plan: Home Plan to discharge in: 24 Hours - Advance Directives Does patient have a Living Will: No Does patient have a Durable POA for Healthcare: No - Code Status/Comfort Care Code Status Assessed: Yes Code Status: Full Code Critical Care: No Time Spent Managing PTS Care (In Minutes): 40
[2023-12-16 10:27] VITALS: BMI 25.9
[2023-12-16 14:23] LABS: Troponin High Sensitivity 10.3 pg/mL (<58.9)
--- NOTE | 2023-12-16 16:43 | P.DS ---
Discharge Date: 12/16/23 Disposition: ROUTINE DISCHARGE Discharge Condition: GOOD Reason for Admission: Chest pain rule out acute coronary syndrome - Problems (1) Chest pain, rule out acute myocardial infarction Current Visit: Yes Status: Acute (2) Prostate cancer metastatic to multiple sites Current Visit: Yes Status: Acute Brief History of Present Illness: Patient is an 83-year-old gentleman who recently had prostate surgery who presents to the emergency room with chest discomfort. Pain was mainly in the anterior chest wall with no significant radiation. Patient denies being short of breath. Patient states that the pain has subsided for the most part. Patient's workup in the emergency room was negative. Troponins were negative. EKG with no acute abnormality. Patient is slightly bradycardic but within normal blood pressure. At this time, patient will be admitted for observation. Hospital Course: Patient has done well during hospital stay. Patient's clinical symptoms have improved. Patient will continue with medical therapy as an outpatient. Patient will follow-up with consultants and PCP as an outpatient in 1 to 2 weeks. Vital Signs/Physical Exam: Temp Pulse Resp BP Pulse Ox 98 F 65 14 140/69 100 12/16/23 09:39 12/16/23 16:00 12/16/23 16:00 12/16/23 16:00 12/16/23 16:00 General: Alert, In no apparent distress, Oriented x3 Laboratory Data at Discharge: WBC 8.50 thou/uL (4.3-10.9) 12/16/23 06:50 Hgb 11.5 g/dL (13.6-17.9) L 12/16/23 06:50 Hct 35.0 % (39.6-49.0) L 12/16/23 06:50 Plt Count 259 thou/uL (152-406) 12/16/23 06:50 PT 11.7 SECONDS (9.4-12.5) 12/16/23 06:50 INR 1.05 12/16/23 06:50 Sodium 141 mEq/L (136-145) 12/16/23 06:50 Potassium 4.0 mEq/L (3.5-5.1) 12/16/23 06:50 BUN 22 mg/dL (7-18) H 12/16/23 06:50 Creatinine 1.32 mg/dL (0.70-1.30) H 12/16/23 06:50 Glucose 100 mg/dL (74-106) 12/16/23 06:50 Magnesium 2.1 mg/dL (1.6-2.4) 12/16/23 06:50 Total Bilirubin 0.7 mg/dL (0.2-1.0) 12/16/23 06:50 AST 11 U/L (15-37) L 12/16/23 06:50 ALT 17 U/L (16-61) 12/16/23 06:50 Alkaline Phosphatase 49 U/L (45-117) 12/16/23 06:50 Triglycerides 111 mg/dL (<150) 12/16/23 13:55 Cholesterol 86 mg/dL (<200) 12/16/23 13:55 HDL Cholesterol 32 mg/dL (40-60) L 12/16/23 13:55 Cholesterol/HDL Ratio 2.69 12/16/23 13:55 Lipase 36 U/L (13-75) 12/16/23 06:50 Physician Discharge Instructions: -DC IV and DC home -Follow-up with PCP in 1 to 2 weeks -Follow-up with Cardiology in 1 to 2 weeks -Please call Dr. Quintanilla at [phone] if any questions regarding hospital stay -Please call nursing station at [phone] if any nursing or medication questions -Return to the emergency room if symptoms worsen Diet: AHA Activity: Fall precautions Followup: NONE,NONE [Primary Care Provider] - Time spent managing pt's care (in minutes): 35
[2023-12-16 20:13] VITALS: TEMP 97.7
[2023-12-16 20:15] VITALS: BP 137/69; O2SAT 100
[2023-12-16] MEDS ORDERED: METOPROLOL TAR 25 MG TAB PO SCH (21:00)
--- NOTE | 2023-12-17 07:44 | ECHO ---
HEIGHT: 5 ft 7 in WEIGHT: 166 lb 0 oz DATE OF STUDY: 12/16/[address]: Porfirio Quintanilla MD 2-DIMENSIONAL: YES M.MODE: YES DOPPLER: YES COLOR FLOW: YES TDS: YES PORTABLE: YES DEFINITY: BUBBLE STUDY: DIAGNOSIS: CHEST PAIN, RULE OUT ACUTE CORONARY SYNDROME CARDIAC HISTORY: CATHERIZATION: NO SURGERY: NO PROSTHETIC VALVE: NO PACEMAKER: NO MEASUREMENTS (cm) DIASTOLIC (NORMALS) SYSTOLIC (NORMALS) IVSd 1.3 (0.6-1.2) LA Diam 3.2 (1.9-4.0) LVEF 60-65% LVIDd 4.1 (3.5-5.7) LVIDs 2.7 (2.0-3.5) %FS 34% LVPWd 1.3 (0.6-1.2) Ao Diam 3.4 (2.0-3.7) 2 DIMENSIONAL ASSESSMENT: RIGHT ATRIUM: NORMAL LEFT ATRIUM: NORMAL RIGHT VENTRICLE: NORMAL LEFT VENTRICLE: NORMAL TRICUSPID VALVE: NORMAL MITRAL VALVE: NORMAL PULMONIC VALVE: NORMAL AORTIC VALVE: NORMAL PERICARDIAL EFFUSION: NONE AORTIC ROOT: NORMAL LEFT VENTRICULAR WALL MOTION: NORMAL DOPPLER/COLOR FLOW: NORMAL COMMENTS: 1. NORMAL LEFT VENTRICULAR SYSTOLIC FUNCTION, EJECTION FRACTION 60-65%, NORMAL WALL MOTION 2. NORMAL DIASTOLIC FUCNTION TECHNOLOGIST: DAPHNIE HERNANDEZ
[2023-12-17] MEDS ORDERED: ASPIRIN EC 81 MG TAB PO SCH (09:00)
[2023-12-17] MEDS ORDERED: ENOXAPARIN 40 MG/0.4 ML SQ SCH (09:00)
== END 2023-12-16 17:42 | disposition home or self-care (01) ==
LOC: ER 06:28 → ERHOLD 09:31
PROVIDERS: ADMIT Hospitalist; ATTEND Hospitalist
DX: R07.9 Chest pain, unspecified (principal); Z85.46 Personal history of malignant neoplasm of prostate; Z98.890 Other specified postprocedural states
CPT/HCPCS: 93005; 93306; 85025; 80048; 36415; 83735; 85610; 80061; 80076; 84484 ×3; 83690; 83880; 71275; 71045; Q9967; J7030; G0378